=== PATIENT | male | born 1965 | race Two or more races ===

== ENCOUNTER 2018-10-19 10:11 | Emergency (ER) | payer BC ==
[2018-10-19] MEDS ORDERED: ASPIRIN 81 MG PO STA (10:30)
[2018-10-19] MEDS ORDERED: ATORVASTATIN 80 MG TAB PO STA (10:30)
[2018-10-19 10:43] LABS: Basophils # (A) 0.1 k/uL (0-0.2); Basophils % (A) 1 %; Eosinophils # (A) 0.3 k/uL (0-0.7); Eosinophils % (A) 2 %; HCT 51.7 % (39.0-53.0); HGB 17.6 gm/dL (13.0-17.5); Lymphocytes # (A) 2.9 k/uL (1.0-4.8); Lymphocytes % (A) 21 %; MCH 30.6 pg (25.0-35.0); MCV 89.8 fL (80.0-100.0); Mean Platelet Volume 7.3; Monocytes # (A) 0.4 k/uL (0-1.0); Monocytes % (A) 3 %; Neutrophils # (A) 9.7 k/uL (1.3-7.7); Neutrophils % (A) 72 %; Platelet Count 267 k/uL (150-450); RBC 5.75 m/uL (4.30-5.90); WBC 13.4 k/uL (3.8-10.6)
[2018-10-19 10:52] VITALS: TEMP 97.9
--- NOTE | 2018-10-19 11:00 | XR ---
EXAMINATION TYPE: XR chest 2V DATE OF EXAM: 10/19/2018 COMPARISON: Prior chest 12/27/2013 HISTORY: Chest pain TECHNIQUE: Frontal and lateral views of the chest are obtained. FINDINGS: Probable calcified granuloma present in the left upper lobe is stable. There are overlying cardiac leads. Heart is stable. No evident airspace disease, pneumothorax, or pleural effusion. Prom inent lung lines suggest underlying COPD. Cardiomediastinal silhouette, pulmonary vascularity and hil a are unchanged. IMPRESSION: Stable exam. No acute abnormality.
[2018-10-19 11:03] LABS: ALT 30 U/L (21-72); AST 19 U/L (17-59); Albumin 4.6 g/dL (3.5-5.0); Alkaline Phosphatase 158 U/L (38-126); Amylase 54 U/L (30-110); Anion Gap 9 mmol/L; Blood Urea Nitrogen 9 mg/dL (9-20); Calcium 9.5 mg/dL (8.4-10.2); Carbon Dioxide 24 mmol/L (22-30); Chloride 108 mmol/L (98-107); Creatine Kinase 112 U/L (55-170); Glucose 268 mg/dL (74-99); Lipase 146 U/L (23-300); Magnesium 1.8 mg/dL (1.6-2.3); Potassium 4.8 mmol/L (3.5-5.1); Sodium 141 mmol/L (137-145); Total Bilirubin 0.6 mg/dL (0.2-1.3); Total Protein 7.6 g/dL (6.3-8.2)
[2018-10-19 11:35] LABS: Glucose,Whole Blood 202 mg/dL (75-99)
[2018-10-19 11:43] LABS: D-Dimer 0.47 mg/L FEU (<0.60); INR 0.9 (<1.2); Partial Thromboplastin Time 24.8 sec (22.0-30.0); Prothrombin Time 9.6 sec (9.0-12.0)
[2018-10-19 11:58] VITALS: BP 150/103; PULSE 77; RESP 19
--- NOTE | 2018-10-19 12:01 | ED ---
General Adult HPI - General Chief complaint: Recheck/Abnormal Lab/Rx Stated complaint: abn ekg-sent by Dr Muniz Time Seen by Provider: 10/19/18 10:24 Source: patient Mode of arrival: wheelchair Limitations: no limitations - History of Present Illness Initial comments: This a 53-year-old male with a history of type 2 diabetes who was at his office today working when he suddenly became very diaphoretic and nauseated. This lasted for. Time EKG was done which showed no overt evidence of ST changes. He has no known history of heart disease he is a smoker no other modifying factors time he had no chest pain or shortness of breath he reports. Now he states he feels totally normal. - Related Data Home Medications Medication Instructions Recorded Confirmed Aspirin EC [Ecotrin Low Dose] 81 mg PO HS 10/19/18 10/19/18 Allergies Allergy/AdvReac Type Severity Reaction Status Date / Time No Known Allergies Allergy Verified 10/19/18 10:35 Review of Systems ROS Statement: Those systems with pertinent positive or pertinent negative responses have been documented in the HPI. ROS Other: All systems not noted in ROS Statement are negative. Past Medical History Past Medical History: GERD/Reflux, Hyperlipidemia Additional Past Medical History / Comment(s): afib with ablation History of Any Multi-Drug Resistant Organisms: None Reported Past Surgical History: Cholecystectomy Additional Past Surgical History / Comment(s): cardiac ablation Past Psychological History: No Psychological Hx Reported Smoking Status: Current every day smoker Past Alcohol Use History: Occasional Past Drug Use History: None Reported General Exam - General Exam Comments Initial Comments: This is a well-developed well-nourished awake alert oriented 3 male Limitations: no limitations General appearance: alert, in no apparent distress Head exam: Present: atraumatic, normocephalic, normal inspection Eye exam: Present: normal appearance, PERRL, EOMI. Absent: scleral icterus, conjunctival injection, periorbital swelling ENT exam: Present: normal exam, mucous membranes moist Neck exam: Present: normal inspection. Absent: tenderness, meningismus, lymphadenopathy Respiratory exam: Present: normal lung sounds bilaterally. Absent: respiratory distress, wheezes, rales, rhonchi, stridor Cardiovascular Exam: Present: regular rate, normal rhythm, normal heart sounds. Absent: systolic murmur, diastolic murmur, rubs, gallop, clicks GI/Abdominal exam: Present: soft, normal bowel sounds. Absent: distended, tenderness, guarding, rebound, rigid Extremities exam: Present: normal inspection, full ROM, normal capillary refill. Absent: tenderness, pedal edema, joint swelling, calf tenderness Back exam: Present: normal inspection Neurological exam: Present: alert, oriented X3, CN II-XII intact Psychiatric exam: Present: normal affect, normal mood Skin exam: Present: warm, dry, intact, normal color. Absent: rash Course Vital Signs 10/19/18 10:20 Temperature 97.9 F Pulse Rate 81 Respiratory 16 Rate Blood Pressure 201/103 O2 Sat by Pulse 100 Oximetry EKG Findings - EKG Results: EKG: interpreted by GUY, sinus rhythm (Normal sinus rhythm of 70. Interval 176 QRS duration 76 QT since QTC 354/403 nonspecific inferior and anterior changes. These were compared with EKG done in the office today as well as one done previously office no acute changes.) Medical Decision Making - Medical Decision Making The patient remains asymptomatic we did discuss the blood pressure issues as well as glucose issues. Patient does not want stay in hospital and will be discharged the current presentation is consistent with a vasovagal episode and will be discharged to follow-up - Lab Data Result diagrams: 10/19/18 10:22 10/19/18 10:22 Lab Results 10/19/18 10/19/18 10/19/18 Range/Units 10:22 10:22 10:22 WBC 13.4 H (3.8-10.6) k/uL RBC 5.75 (4.30-5.90) m/uL Hgb 17.6 H (13.0-17.5) gm/dL Hct 51.7 (39.0-53.0) % MCV 89.8 (80.0-100.0) fL MCH 30.6 (25.0-35.0) pg MCHC 34.0 (31.0-37.0) g/dL RDW 15.0 (11.5-15.5) % Plt Count 267 (150-450) k/uL Neutrophils % 72 % Lymphocytes % 21 % Monocytes % 3 % Eosinophils % 2 % Basophils % 1 % Neutrophils # 9.7 H (1.3-7.7) k/uL Lymphocytes # 2.9 (1.0-4.8) k/uL Monocytes # 0.4 (0-1.0) k/uL Eosinophils # 0.3 (0-0.7) k/uL Basophils # 0.1 (0-0.2) k/uL PT 9.6 (9.0-12.0) sec INR 0.9 (<1.2) APTT 24.8 (22.0-30.0) sec D-Dimer 0.47 (<0.60) mg/L FEU Sodium 141 (137-145) mmol/L Potassium 4.8 (3.5-5.1) mmol/L Chloride 108 H (98-107) mmol/L Carbon Dioxide 24 (22-30) mmol/L Anion Gap 9 mmol/L BUN 9 (9-20) mg/dL Creatinine 0.79 (0.66-1.25) mg/dL Est GFR (CKD-EPI)AfAm >90 (>60 ml/min/1.73 sqM) Est GFR (CKD-EPI)NonAf >90 (>60 ml/min/1.73 sqM) Glucose 268 H (74-99) mg/dL POC Glucose (mg/dL) (75-99) mg/dL POC Glu Relocation Counselor ID Calcium 9.5 (8.4-10.2) mg/dL Magnesium 1.8 (1.6-2.3) mg/dL Total Bilirubin 0.6 (0.2-1.3) mg/dL AST 19 (17-59) U/L ALT 30 (21-72) U/L Alkaline Phosphatase 158 H (38-126) U/L Creatine Kinase 112 (55-170) U/L Troponin I (0.000-0.034) ng/mL NT-Pro-B Natriuret Pep pg/mL Total Protein 7.6 (6.3-8.2) g/dL Albumin 4.6 (3.5-5.0) g/dL Amylase 54 (30-110) U/L Lipase 146 (23-300) U/L 10/19/18 10/19/18 10/19/18 Range/Units 10:22 10:22 11:33 WBC (3.8-10.6) k/uL RBC (4.30-5.90) m/uL Hgb (13.0-17.5) gm/dL Hct (39.0-53.0) % MCV (80.0-100.0) fL MCH (25.0-35.0) pg MCHC (31.0-37.0) g/dL RDW (11.5-15.5) % Plt Count (150-450) k/uL Neutrophils % % Lymphocytes % % Monocytes % % Eosinophils % % Basophils % % Neutrophils # (1.3-7.7) k/uL Lymphocytes # (1.0-4.8) k/uL Monocytes # (0-1.0) k/uL Eosinophils # (0-0.7) k/uL Basophils # (0-0.2) k/uL PT (9.0-12.0) sec INR (<1.2) APTT (22.0-30.0) sec D-Dimer (<0.60) mg/L FEU Sodium (137-145) mmol/L Potassium (3.5-5.1) mmol/L Chloride (98-107) mmol/L Carbon Dioxide (22-30) mmol/L Anion Gap mmol/L BUN (9-20) mg/dL Creatinine (0.66-1.25) mg/dL Est GFR (CKD-EPI)AfAm (>60 ml/min/1.73 sqM) Est GFR (CKD-EPI)NonAf (>60 ml/min/1.73 sqM) Glucose (74-99) mg/dL POC Glucose (mg/dL) 202 H (75-99) mg/dL POC Glu Relocation Counselor ID Primo Hillary Calcium (8.4-10.2) mg/dL Magnesium (1.6-2.3) mg/dL Total Bilirubin (0.2-1.3) mg/dL AST (17-59) U/L ALT (21-72) U/L Alkaline Phosphatase (38-126) U/L Creatine Kinase (55-170) U/L Troponin I <0.012 (0.000-0.034) ng/mL NT-Pro-B Natriuret Pep 67 pg/mL Total Protein (6.3-8.2) g/dL Albumin (3.5-5.0) g/dL Amylase (30-110) U/L Lipase (23-300) U/L - Radiology Data Radiology results: report reviewed (I did the imaging and reports no acute findings the echo was reviewed by Dr. Gao), image reviewed Disposition Clinical Impression: Vasovagal episode, Hyperglycemia Disposition: HOME SELF-CARE Condition: Good Instructions (If sedation given, give patient instructions): Near Syncope (ED), Hypertension (ED), Nondiabetic Hyperglycemia (ED) Is patient prescribed a controlled substance at d/c from ED?: No Referrals: Bernardino Rajan DO [Primary Care Provider] - 1-2 days
[2018-10-19 19:25] LABS: Hemoglobin A1C 10.9 % (4.0-6.0)
--- NOTE | 2018-10-20 10:27 | ECHOF ---
Referral Reason:Vagal episode MEASUREMENTS -------- HEIGHT: 180.3 cm WEIGHT: 103.0 kg BP: RVIDd: 2.5 cm (< 3.3) IVSd: 1.9 cm (0.6 - 1.1) LVIDd: 3.6 cm (3.9 - 5.3) LVPWd: 1.9 cm (0.6 - 1.1) IVSs: 2.1 cm LVIDs: 2.2 cm LVPWs: 2.2 cm LAESV Index (A-L): 19.69 ml/m Ao Diam: 2.5 cm (2.0 - 3.7) AV Cusp: 2.0 cm (1.5 - 2.6) LA Diam: 3.9 cm (2.7 - 3.8) EPSS: 0.4 cm MV E Samuel: 0.77 m/s MV DecT: 179 ms MV A Samuel: 0.59 m/s MV E/A Ratio: 1.31 RAP: 5.00 mmHg RVSP: 11.23 mmHg MV EF SLOPE: 65.35 mm/s (70 - 150) MV EXCURSION: 1.67 cm (> 18.000) FINDINGS -------- Sinus rhythm. This was a technically adequate study. The cavity size is decreased. There is severe concentric left ventricular hypertrophy. Overall le ft ventricular systolic function is normal with, an EF between 65 - 70 %. The right ventricle is normal in size. The left atrial size is normal. The right atrial size is normal. Interatrial and interventricular septum intact. Aortic valve is trileaflet and is mildly thickened. Mild mitral regurgitation is present. The tricuspid valve appears structurally normal. Mild tricuspid regurgitation present. There is n o evidence of pulmonary hypertension. There is no pulmonic regurgitation present. The aortic root size is normal. Normal inferior vena cava with normal inspiratory collapse consistent with estimated right atrial pre ssure of 10 mmHg. There is no pericardial effusion. CONCLUSIONS -------- 1. Sinus rhythm. 2. This was a technically adequate study. 3. The cavity size is decreased. 4. There is severe concentric left ventricular hypertrophy. 5. Overall left ventricular systolic function is normal with, an EF between 65 - 70 %. 6. The right ventricle is normal in size. 7. The left atrial size is normal. 8. The right atrial size is normal. 9. Interatrial and interventricular septum intact. 10. Aortic valve is trileaflet and is mildly thickened. 11. Mild mitral regurgitation is present. 12. The tricuspid valve appears structurally normal. 13. Mild tricuspid regurgitation present. 14. There is no evidence of pulmonary hypertension. 15. There is no pulmonic regurgitation present. 16. The aortic root size is normal. 17. Normal inferior vena cava with normal inspiratory collapse consistent with estimated right atrial pressure of 10 mmHg. 18. There is no pericardial effusion. DIRECTOR OF MARKETING AND PROMOTIONS: Millie Lemon RDCS
--- NOTE | 2018-10-20 12:54 | P.CRDCN ---
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 Subsequently he felt sweaty. He did not have any symptoms of chest pain or chest discomfort, shortness of breath, heart racing or fluttering, or syncope. He checked his sugar at his office and that came in to be elevated around 200 where he received some insulin and presented to the emergency room. In the ER, when he presented, he was hypertensive with a systolic blood pressure around 190 mmHg. The patient is not aware of any prior history of high blood pressure nor high cholesterol. Also the diabetes is new diagnosis to him. No history of coronary artery disease or coronary revascularization. He does have significant history of smoking and he continues to smoke as well. I did review the EKG in the emergency room I that revealed sinus rhythm with Q waves in the septal leads. No ischemic or acute ST or T-wave abnormalities. The time the patient was seen in the ER, there was no cardiac enzymes back on the patient. The patient was insistent to go back to work. I did perform an echocardiogram at bedside and that revealed hyperdynamic left ventricle with an ejection fraction of about 70- 75% with almost left ventricular cavity obliteration and evidence of severe left ventricular hypertrophy with septal thickness about 2 cm. No significant valvular abnormalities seen on the echo at bedside. Past Medical History Past Medical History: GERD/Reflux, Hyperlipidemia Additional Past Medical History / Comment(s): afib with ablation History of Any Multi-Drug Resistant Organisms: None Reported Past Surgical History: Cholecystectomy Additional Past Surgical History / Comment(s): cardiac ablation Past Psychological History: No Psychological Hx Reported Smoking Status: Current every day smoker Past Alcohol Use History: Occasional Past Drug Use History: None Reported Medications and Allergies Home Medications Medication Instructions Recorded Confirmed Type Aspirin EC [Ecotrin Low Dose] 81 mg PO HS 06/03/19 06/03/19 History Allergies Allergy/AdvReac Type Severity Reaction Status Date / Time No Known Allergies Allergy Verified 10/19/18 10:35 Physical Exam - Constitutional General appearance: no acute distress - Respiratory Respiratory: bilateral: CTA - Cardiovascular Rhythm: regular Heart sounds: normal: S1, S2 Results 10/19/18 10:22 10/19/18 10:22 10/19/18 10:22 10/19/18 10:22 Assessment and Plan Assessment: Assessment #1 an episode of nausea and sweating which has resolved #2 uncontrolled hypertension #3 recent diagnosis of diabetes #4 history of smoking Plan #1 I did advise the patient to stay to rule out acute coronary event by serial cardiac enzymes. #2 the EKG did not show any ischemic or acute changes. He continues to be chest pain-free #3 the echo revealed severe LVH with hyperdynamic left ventricle #4 I advised to obtain a stress test as an outpatient Thank you for allowing us participate in the care of the patient.
== END 2018-10-19 12:05 | disposition home or self-care (01) ==
LOC: EC 10:11
DX: E11.65 Type 2 diabetes mellitus with hyperglycemia (principal); R55 Syncope and collapse; I48.91 Unspecified atrial fibrillation; F17.200 Nicotine dependence, unspecified, uncomplicated; Z79.82 Long term (current) use of aspirin
CPT/HCPCS: 36415; 71046; 80053; 82150; 82550; 83036; 83690; 83735; 83880; 84484; 85025; 85379; 85610; 85730; 93306; 99285

== ENCOUNTER 2019-12-20 11:51 | Observation (INO) | payer BC ==
[~2019-12-20 11:51] MED LIST: Pre Op ABX Message 1 EACH MISC MISCELLANE ONE
[2019-12-20 12:52] LABS: Glucose,Whole Blood 233 mg/dL (75-99)
[2019-12-20] MEDS ORDERED: LACTATED RINGERS 1,000 ML IV ONE ×3 (12:52→15:06)
[2019-12-20] MEDS ORDERED: LIDOCAINE 1% (10MG/ML) FOR IV START INTRADERMA ONE (12:55)
[2019-12-20] MEDS ORDERED: ONDANSETRON 4 MG/2 ML VIAL ONE (12:57)
[2019-12-20] MEDS ORDERED: ONDANSETRON 4 MG/2 ML VIAL IVP ONE (13:02)
[2019-12-20] MEDS ORDERED: DEXAMETHASONE SOD PHOSPHATE 10 MG/ML 1 ML VIAL IV ONE (13:03)
[2019-12-20] MEDS ORDERED: fentaNYL (PF) 50 MCG/ML 2 ML AMP IV ONE ×2 (13:10→13:20)
[2019-12-20] MEDS ORDERED: fentaNYL (PF) 50 MCG/ML 2 ML AMP ONE (14:19)
[2019-12-20] MEDS ORDERED: MIDAZOLAM 2 MG/2 ML VIAL ONE (14:19)
[2019-12-20] MEDS ORDERED: LIDOCAINE 1% INJ 10MG/ML (20 ML MDV) ONE (14:19)
[2019-12-20] MEDS ORDERED: PROPOFOL 10 MG/ML 20 ML VIAL IV ONE (14:19)
--- NOTE | 2019-12-20 14:21 | P.GSHP ---
History of Present Illness H&P Date: 12/20/19 Chief Complaint: Right groin abscess 54-year-old male contacted me by phone this morning complaining of increased swelling right groin and perineum. Patient states symptoms began 3-4 days ago. Had another small area of swelling on the left perineal region. States he jarrell d the smaller left perineal region 2 days ago at home and purulent fluid was identified. Since then has had increasing swelling on the right. Area is larger in size. Describes feeling feverish with chills. Some headaches and body aches. Did not take his temperature. No respiratory symptoms. Patient diabetic. States his blood sugars have been fairly well controlled. No recent hemoglobin A1c. Hemoglobin A1c in the past was approximately 10. Takes Januvia and Bystolic daily. He is afebrile here in the hospital on admission. No history of MRSA. Past Medical History Past Medical History: GERD/Reflux, Hyperlipidemia Additional Past Medical History / Comment(s): afib with ablation History of Any Multi-Drug Resistant Organisms: None Reported Past Surgical History: Cholecystectomy Additional Past Surgical History / Comment(s): cardiac ablation Past Anesthesia/Blood Transfusion Reactions: No Reported Reaction Past Psychological History: No Psychological Hx Reported Smoking Status: Current some day smoker Past Alcohol Use History: Occasional Past Drug Use History: None Reported Medications and Allergies Home Medications Medication Instructions Recorded Confirmed Type Nebivolol HCl [Bystolic] 10 mg PO DAILY 12/20/19 12/20/19 History sitaGLIPtin [Januvia] 1 tab PO DAILY 12/20/19 12/20/19 History Allergies Allergy/AdvReac Type Severity Reaction Status Date / Time NARCOTICS AdvReac Nausea & Uncoded 12/20/19 12:40 Vomiting Surgical - Exam Vital Signs Temp Pulse Resp BP Pulse Ox 98.6 F 88 16 162/71 99 12/20/19 12:29 12/20/19 12:29 12/20/19 12:29 12/20/19 12:29 12/20/19 12:29 Physical exam: General: Well-developed, well-nourished HEENT: Normocephalic, sclerae nonicteric Abdomen: Nontender, nondistended Extremities: No edema Neuro: Alert and oriented Integument: Area of erythema extending from the right groin posteriorly to the perineum. Induration absent in the perirectal locations. Area of fluctuance most notable in the right groin crease measuring 2-3 cm. Extension of erythema approximately 10 x 5 cm. Another area of induration left side of perineum separate from the area on the right. Small scar from recent self I&D without drainage noted. No significant erythema on the left. Results - Labs Abnormal Lab Results - Last 24 Hours (Table) 12/20/19 Range/Units 12:50 POC Glucose (mg/dL) 233 H (75-99) mg/dL Assessment and Plan (1) Abscess of right groin Narrative/Plan: 54-year-old male with right groin abscess. We'll proceed with incision and drainage at this time. Anticipate packing wound with local wound care to begin postoperatively. We'll obtain cultures. Will consult infectious disease postoperatively. We'll cover for MRSA. Etiology may be on the basis of acute abscess formation in the setting of hidradenitis suppurativa. Current Visit: Yes Status: Acute Code(s): L02.214 - CUTANEOUS ABSCESS OF GROIN SNOMED Code(s): 89926651
[2019-12-20] MEDS ORDERED: ceFAZolin 1,000 MG VIAL IVPB ONE (14:40)
[2019-12-20] MEDS ORDERED: BUPIVACAINE (PF) 0.25% 30 ML VIAL SQ ONE (14:45)
[2019-12-20] MEDS ORDERED: ACETAMINOPHEN TAB 325 MG TAB PO PRN (15:06)
[2019-12-20] MEDS ORDERED: VANCOMYCIN IV PER PHARMACY 1 EACH MISC MISCELLANE PRN (15:06)
[2019-12-20] MEDS ORDERED: HYDROmorphone 1 MG/ML 1 ML SYRINGE IVP PRN (15:06)
[2019-12-20] MEDS ORDERED: HYDROcodone/APAP 5-325MG 1 EACH TAB PO PRN (15:06)
[2019-12-20] MEDS ORDERED: NALOXONE 0.4 MG/ML 1 ML VIAL IV PRN (15:06)
[2019-12-20] MEDS ORDERED: ONDANSETRON 4 MG/2 ML VIAL IVP PRN (15:06)
--- NOTE | 2019-12-20 15:15 | P.OP ---
Date of Procedure: 12/20/19 Procedure(s) Performed: PREOPERATIVE DIAGNOSIS: Right groin abscess POSTOPERATIVE DIAGNOSIS: Same PROCEDURE: Incision and drainage right groin abscess SURGEON: Autumn EBL: 10 mL ANESTHESIA: Gen. COMPLICATIONS: None OPERATIVE PROCEDURE: Patient was placed on the operative table in the lithotomy position after general anesthesia achieved. Scrotum was taped superiorly. Area prepped with Betadine. Patient had an obvious abscess in the right groin extending along the right groin crease to the perineal region. An incision was made in an oblique fashion inferior to the groin crease. Entrance into a moderate sized abscess cavity was performed. Before any manipulation air bubbles were noted to emanate from the wound itself. A foul malodorous purulent fluid was evacuated. Cultures were taken. Incision was lengthened slightly in a posterior direction given the size of the abscess. Abscess size measured 7 x 3.5 cm. No further tracking or purulence was seen. The patient had a small wound slightly inferior to this and on the left side of the perineum that he had himself previously lanced. This was bluntly dissected as the wound was still present. This wound measured 8 mm x 8 mm x 1 cm. This was irrigated along with the primary abscess site. The right groin abscess was packed with one-inch iodoform gauze. A small sliver of iodophor was also placed in the left perineal wound site. Sterile dressings were applied. DISPOSITION: Stable to recovery room
[2019-12-20 15:17] LABS: Glucose,Whole Blood 230 mg/dL (75-99)
[2019-12-20] MEDS ORDERED: INSULIN ASPART (NovoLOG) 100 UNIT/ML VIAL SQ ONE (16:16)
[2019-12-20] MEDS ORDERED: KETOROLAC 30 MG/ML 1 ML VIAL IVP ONE (16:24)
[2019-12-20] MEDS ORDERED: VANCOMYCIN 1,750 MG in SODIUM CHLORIDE 0.9% 500 ML 500 ML IVPB ONE (17:00)
[2019-12-20 17:43] LABS: African American GFR (CKD) >90 (>60 ml/min/1.73 sqM); Non-African American GFR(CKD) >90 (>60 ml/min/1.73 sqM)
[2019-12-20] MEDS: KETOROLAC 30 MG/ML 1 ML VIAL IVP SCH ×2 (17:53→22:08)
[2019-12-20] MEDS: AMPICILLIN-SULBACTAM 3 GM in SODIUM CHLORIDE 0.9% 100 ML IVPB SCH ×2 (17:53→23:46)
[2019-12-20] MEDS: HEPARIN SODIUM,PORCINE 5,000 UNIT/ML 1 ML VIAL SQ SCH ×2 (17:53→23:46)
[2019-12-21] MEDS: KETOROLAC 30 MG/ML 1 ML VIAL IVP SCH ×2 (02:59→09:25)
[2019-12-21] MEDS: VANCOMYCIN 1,750 MG in SODIUM CHLORIDE 0.9% 500 ML 500 ML IVPB SCH ×2 (03:09→09:25)
[2019-12-21 06:18] LABS: Glucose,Whole Blood 351 mg/dL (75-99)
[2019-12-21 06:45] LABS: Basophils % (A) 0 %; Eosinophils % (A) 0 %; HCT 40.6 % (39.0-53.0); HGB 13.2 gm/dL (13.0-17.5); Lymphocytes # (A) 1.3 k/uL (1.0-4.8); Lymphocytes % (A) 9 %; MCH 30.2 pg (25.0-35.0); MCHC 32.6 g/dL (31.0-37.0); MCV 92.8 fL (80.0-100.0); Mean Platelet Volume 7.6; Monocytes # (A) 0.6 k/uL (0-1.0); Monocytes % (A) 4 %; Neutrophils # (A) 12.7 k/uL (1.3-7.7); Neutrophils % (A) 86 %; Platelet Count 203 k/uL (150-450); RBC 4.38 m/uL (4.30-5.90); RDW 12.8 % (11.5-15.5); WBC 14.7 k/uL (3.8-10.6)
[2019-12-21 06:55] LABS: ALT 12 U/L (4-49); AST 12 U/L (17-59); African American GFR (CKD) >90 (>60 ml/min/1.73 sqM); Albumin 3.2 g/dL (3.5-5.0); Alkaline Phosphatase 75 U/L (38-126); Anion Gap 7 mmol/L; Blood Urea Nitrogen 23 mg/dL (9-20); Calcium 8.6 mg/dL (8.4-10.2); Carbon Dioxide 24 mmol/L (22-30); Chloride 106 mmol/L (98-107); Glucose 329 mg/dL (74-99); Non-African American GFR(CKD) >90 (>60 ml/min/1.73 sqM); Sodium 137 mmol/L (137-145); Total Bilirubin 0.5 mg/dL (0.2-1.3); Total Protein 5.6 g/dL (6.3-8.2)
[2019-12-21 06:56] LABS: Potassium 4.8 mmol/L (3.5-5.1)
[2019-12-21 07:36] VITALS: BP 160/71; PULSE 60; RESP 16; TEMP 97.5
[2019-12-21] MEDS: HEPARIN SODIUM,PORCINE 5,000 UNIT/ML 1 ML VIAL SQ SCH (07:44)
[2019-12-21] MEDS: AMPICILLIN-SULBACTAM 3 GM in SODIUM CHLORIDE 0.9% 100 ML IVPB SCH (07:44)
[2019-12-21] MEDS ORDERED: NEBIVOLOL 5 MG TAB PO SCH (09:00)
[2019-12-21] MEDS ORDERED: PANTOPRAZOLE 40 MG/10 ML VIAL IV SCH (09:00)
[2019-12-21] MEDS ORDERED: LINAGLIPTIN 5 MG TABLET PO SCH (09:00)
--- NOTE | 2019-12-21 10:32 | P.DS ---
Providers Date of admission: 12/21/19 04:46 Expected date of discharge: 12/21/19 Attending physician: Ag Leyva Consults: 12/20/19 15:06 Consult Physician Routine Consulting Provider: Vicenta Easley Consult Reason/Comments: Groin abscess Do you want consulting provider notified?: Yes Primary care physician: Stated None Hospital Course: 54-year-old male who contacted Dr. Leyva regarding increased swelling of his right groin and perineum. Patient was directly admitted to the hospital. Patient underwent incision and drainage of right groin abscess on 12/20/2019. Patient was evaluated by infectious disease during hospitalization. He was deemed stable for discharge home today per Dr. Leyva. Antibiotics prescribed at discharge per Dr. Easley. Please see EMR for further hospital course details. Discharge diagnosis 1. Right groin abscess, status post incision and drainage Nurse practitioner note has been reviewed by physician. Signing provider agrees with the documented findings, assessment, and plan of care. Patient Condition at Discharge: Stable Plan - Discharge Summary Discharge Rx Participant: Yes New Discharge Prescriptions: New Amoxic-Pot Clav 875-125Mg [Augmentin 875-125] 1 tab PO Q12HR #28 tab Sulfamethox-Tmp 800-160Mg [Bactrim DS 800-160 mg] 1 tab PO Q12HR #28 tab No Action sitaGLIPtin [Januvia] 1 tab PO DAILY Nebivolol HCl [Bystolic] 10 mg PO DAILY Discharge Medication List Nebivolol HCl [Bystolic] 10 mg PO DAILY 12/20/19 [History] sitaGLIPtin [Januvia] 1 tab PO DAILY 12/20/19 [History] Amoxic-Pot Clav 875-125Mg [Augmentin 875-125] 1 tab PO Q12HR #28 tab 12/21/19 [Rx] Sulfamethox-Tmp 800-160Mg [Bactrim DS 800-160 mg] 1 tab PO Q12HR #28 tab 12/21/19 [Rx] Follow up Appointment(s)/Referral(s): Vicenta Easley MD [STAFF PHYSICIAN] - 12/23/19 (Call office for wound cultures and further antibiotic recommendations.) Patient Instructions/Handouts: Incision and Drainage (DC) Discharge Disposition: HOME SELF-CARE
--- NOTE | 2019-12-21 10:35 | P.DS ---
Providers Date of admission: 12/21/19 04:46 Expected date of discharge: 12/21/19 Attending physician: Ag Leyva Consults: 12/20/19 15:06 Consult Physician Routine Consulting Provider: Vicenta Easley Consult Reason/Comments: Groin abscess Do you want consulting provider notified?: Yes Primary care physician: Stated None - Discharge Diagnosis(es) (1) Abscess of right groin Patient admitted yesterday for a right groin abscess. Went to surgery for incision and drainage. Gram stain showed both gram-positive and gram negatives bacteria. Doing well overnight. Blood sugars are somewhat elevated. He is afebrile. White blood cell count is 14. Patient is very anxious to go home. Patient is able to shower. His packing was removed and replaced with Aquacel silver rope. We'll discharge home at this time. Follow-up one week. Infectious disease will be following his cultures post discharge. Outpatient antibiotics prescribed. Current Visit: No Status: Acute Plan - Discharge Summary Discharge Rx Participant: Yes New Discharge Prescriptions: New Amoxic-Pot Clav 875-125Mg [Augmentin 875-125] 1 tab PO Q12HR #28 tab Sulfamethox-Tmp 800-160Mg [Bactrim DS 800-160 mg] 1 tab PO Q12HR #28 tab No Action sitaGLIPtin [Januvia] 1 tab PO DAILY Nebivolol HCl [Bystolic] 10 mg PO DAILY Discharge Medication List Nebivolol HCl [Bystolic] 10 mg PO DAILY 12/20/19 [History] sitaGLIPtin [Januvia] 1 tab PO DAILY 12/20/19 [History] Amoxic-Pot Clav 875-125Mg [Augmentin 875-125] 1 tab PO Q12HR #28 tab 12/21/19 [Rx] Sulfamethox-Tmp 800-160Mg [Bactrim DS 800-160 mg] 1 tab PO Q12HR #28 tab 12/21/19 [Rx] Follow up Appointment(s)/Referral(s): Vicenta Easley MD [STAFF PHYSICIAN] - 12/23/19 (Call office for wound cultures and further antibiotic recommendations.) Patient Instructions/Handouts: Incision and Drainage (DC)
[2019-12-21] MEDS ORDERED: VANCOMYCIN TROUGH DUE 1 EACH MISC MISCELLANE ONE (18:00)
== END 2019-12-21 09:54 | disposition home or self-care (01) ==
LOC: OR 11:51 → 1SOBS 16:22 → OR 12-21 05:17
PROVIDERS: ADMIT Surgery; ATTEND Surgery
DX: L02.214 Cutaneous abscess of groin (principal); E11.65 Type 2 diabetes mellitus with hyperglycemia; K21.9 Gastro-esophageal reflux disease without esophagitis; E78.5 Hyperlipidemia, unspecified; I48.91 Unspecified atrial fibrillation; F17.200 Nicotine dependence, unspecified, uncomplicated; Z87.2 Personal history of diseases of the skin and subcutaneous tissue; Z79.84 Long term (current) use of oral hypoglycemic drugs; Z79.899 Other long term (current) drug therapy; Z79.82 Long term (current) use of aspirin; Z98.890 Other specified postprocedural states; Z90.49 Acquired absence of other specified parts of digestive tract; Z88.5 Allergy status to narcotic agent
CPT/HCPCS: 10060; 80053; 82565; 85025; 87070; 87205; 87075; G0378; J2250; J3370 ×2; J1644 ×2; J1100; J2405; J0690; J2001; J3010; J1885 ×2; J0295 ×2; J2704; C9113

== ENCOUNTER → 2020-02-24 | Outpatient (CLI) | payer BC | END | disposition home or self-care (01) | LOC: LABWHC1 11:17 | PROVIDERS: ATTEND Family Medicine | DX: Z20.828 Contact with and (suspected) exposure to other viral communicable diseases (principal) | CPT/HCPCS: 87635; C9803 ==

== ENCOUNTER 2022-11-12 05:42 | Day surgery (SDC) | payer BC ==
[2022-11-11 11:52] VITALS: BMI 28.2
[2022-11-12] MEDS ORDERED: SODIUM CHLORIDE 0.9% 1,000 ML in EMPTY BAG 1 BAG IV ONE (06:01)
[2022-11-12 06:26] VITALS: RESP 18; TEMP 98.2
[2022-11-12 06:28] LABS: Glucose,Whole Blood 208 mg/dL (70-110)
[2022-11-12 06:29] LABS: Basophils # (A) 0.1 k/uL (0-0.2); Basophils % (A) 1 %; Eosinophils # (A) 0.3 k/uL (0-0.7); Eosinophils % (A) 3 %; HCT 45.9 % (39.0-53.0); HGB 15.7 gm/dL (13.0-17.5); Lymphocytes # (A) 3.6 k/uL (1.0-4.8); Lymphocytes % (A) 35 %; MCH 31.5 pg (25.0-35.0); MCHC 34.3 g/dL (31.0-37.0); MCV 91.8 fL (80.0-100.0); Mean Platelet Volume 7.4; Monocytes # (A) 0.6 k/uL (0-1.0); Monocytes % (A) 6 %; Neutrophils # (A) 5.7 k/uL (1.3-7.7); Neutrophils % (A) 55 %; Platelet Count 219 k/uL (150-450); RDW 12.7 % (11.5-15.5); WBC 10.3 k/uL (3.8-10.6)
[2022-11-12 06:42] LABS: African American GFR (CKD) >90 (>60 ml/min/1.73 sqM); Anion Gap 6 mmol/L; Blood Urea Nitrogen 18 mg/dL (9-20); Calcium 8.9 mg/dL (8.4-10.2); Carbon Dioxide 26 mmol/L (22-30); Chloride 105 mmol/L (98-107); Glucose 198 mg/dL (74-99); Non-African American GFR(CKD) >90 (>60 ml/min/1.73 sqM); Potassium 3.9 mmol/L (3.5-5.1); Sodium 137 mmol/L (137-145)
[2022-11-12] MEDS ORDERED: LIDOCAINE 1% INJ 10MG/ML (20 ML MDV) ONE (07:14)
[2022-11-12] MEDS ORDERED: VERAPAMIL 2.5 MG/ML 2 ML AMP ONE (07:14)
[2022-11-12] MEDS ORDERED: fentaNYL (PF) 50 MCG/ML 2 ML AMP ONE (07:26)
[2022-11-12] MEDS ORDERED: HEPARIN SODIUM 1,000 UN/ML (10ML VL) ONE (07:29)
[2022-11-12] MEDS ORDERED: MIDAZOLAM 2 MG/2 ML VIAL IV ONE (07:33)
[2022-11-12] MEDS ORDERED: LIDOCAINE 1% INJ 10MG/ML (20 ML MDV) SQ ONE (07:36)
[2022-11-12] MEDS ORDERED: IOPAMIDOL-370 100ML BTL INJ ONE ×2 (08:02)
--- NOTE | 2022-11-12 08:15 | P.OP ---
Date of Procedure: 11/12/22 Description of Procedure: Preoperative diagnosis: Disabling claudication Cara classification 3 Postop diagnosis: Same, bilateral superficial femoral artery stenosis greater than 90%. Poor runoff bilateral tibial arteries Procedure: Aortogram with bilateral lower extremity runoffs via left radial elías ry access under ultrasound guidance Surgeon: Vitaliy GENTILE Anesthesia: Moderate sedation times 32 minutes Estimated blood loss: 5 mL Complications: None Condition: Stable Findings: Aorta: Patent aorta with mild atherosclerotic disease throughout. No evidence of stenosis. Bilateral renal arteries with no evidence of stenotic disease. Iliacs: Bilateral common iliac, internal and external iliac arteries are patent with mild atherosclerotic disease throughout with no evidence of significant stenosis. Femorals: Bilateral common femoral and profundus femoris arteries are patent with mild atherosclerotic disease without any significant stenosis. Bilateral superficial femoral arteries are patent to the Azael's canal where there is significant stenosis greater than 90% bilaterally. Popliteal: Patent with mild atherosclerotic disease without any evidence of severe stenosis Tibials: Three-vessel takeoff noted bilaterally with areas of atherosclerotic disease and stenosis noted to be mild. There is decreased flow extending from the midportion of the lower leg to the ankle. Operative narrative: After written informed consent was obtained the patient all risks benefits competitions were described the patient is brought to the Phot[employer] Operator and laid in a supine position. The area of the left wrist was prepped and draped in the usual sterile fashion. Local anesthesia with moderate sedation was performed with continuous pulse ox monitoring and EKG monitoring. Utilizing ultrasound the left radial artery was visualized and shown to be patent without any significant plaque. Utilizing a multipurpose needle under ultrasound guidance the artery was accessed. Guidewire was placed followed by 5-Romansh sheath. 035 Glidewire was then placed into the descending thoracic aorta to the L1 vertebrae level followed by pigtail catheter. Angiogram was then obtained of the aorta. Catheter was then placed at the bifurcation and lower extremity runoffs were obtained. Once completed all guidewires, catheters and sheaths were removed and TR band was placed for hemostasis. Patient tolerated procedure well was sent to PACU for recovery Plan - Discharge Summary Discharge Rx Participant: No New Discharge Prescriptions: No Action Nebivolol HCl [Bystolic] 20 mg PO HS Discharge Medication List Nebivolol HCl [Bystolic] 20 mg PO HS 11/11/22 [History] Follow up Appointment(s)/Referral(s): Dhaval Burks DO [STAFF PHYSICIAN] - 1 Week Activity/Diet/Wound Care/Special Instructions: no lifting greater than 15 lbs with left arm x 1 week. Ok to shower. Discharge Disposition: HOME SELF-CARE
[2022-11-12 10:29] VITALS: BP 153/67; PULSE 67
--- NOTE | 2022-11-12 21:01 | IR ---
EXAMINATION TYPE: IR angio abdominal w runoff DATE OF EXAM: 11/12/2022 CLINICAL HISTORY: Peripheral arterial disease. TECHNIQUE: Fluoroscopy. COMPARISON: None. FINDINGS: Fluoroscopic guidance was provided during abdominal angiogram with runoff procedure perfor med by Dr. Burks. A total of 2.5 measurement of fluoroscopic time was utilized during the procedur e and 227 spot images was acquired. Total DAP = 39.4 Gy x cm2. Please refer to procedure note for fur ther details. IMPRESSION: As Above.
== END 2022-11-12 11:24 | disposition home or self-care (01) ==
LOC: CATHCVL 05:42
PROVIDERS: ATTEND Surgery
DX: I70.203 Unspecified atherosclerosis of native arteries of extremities, bilateral legs (principal); I48.91 Unspecified atrial fibrillation; Z79.899 Other long term (current) drug therapy
CPT/HCPCS: 36200; 75625; 75716; 76937; 80048; 85025; C1769 ×2; C1894; J2250; J2001; Q9967

== ENCOUNTER → 2023-03-28 | Day surgery (SDC) | payer BC ==
[2023-03-26 14:51] VITALS: BMI 28.3
[~2023-03-28] MED LIST changes: +CLOPIDOGREL 75 MG TAB ONE; +CLOPIDOGREL 75 MG TAB PO ONE; +HEPARIN SODIUM 1,000 UN/ML (10ML VL) IV ONE; +HEPARIN SODIUM 1,000 UN/ML (10ML VL) ONE; +INSULIN ASPART (NovoLOG) 100 UNIT/ML VIAL SQ ONE; +IOPAMIDOL-370 100ML BTL INJ ONE; +LIDOCAINE 1% INJ 10MG/ML (20 ML MDV) ONE; +LIDOCAINE 1% INJ 10MG/ML (20 ML MDV) SQ ONE; +MIDAZOLAM 2 MG/2 ML VIAL IVP ONE; -Pre Op ABX Message 1 EACH MISC MISCELLANE ONE; +SODIUM CHLORIDE 0.9% 1,000 ML in EMPTY BAG 1 BAG IV ONE; +fentaNYL (PF) 50 MCG/ML 2 ML AMP IVP ONE; +fentaNYL (PF) 50 MCG/ML 2 ML AMP ONE
[2023-03-28 06:31] LABS: Glucose,Whole Blood 251 mg/dL (70-110)
[2023-03-28 06:32] LABS: Basophils % (A) 0 %; Eosinophils # (A) 0.2 k/uL (0-0.7); Eosinophils % (A) 2 %; HCT 44.1 % (39.0-53.0); HGB 15.1 gm/dL (13.0-17.5); Lymphocytes # (A) 2.3 k/uL (1.0-4.8); Lymphocytes % (A) 26 %; MCH 31.4 pg (25.0-35.0); MCHC 34.2 g/dL (31.0-37.0); MCV 91.7 fL (80.0-100.0); Mean Platelet Volume 7.3; Monocytes # (A) 0.4 k/uL (0-1.0); Monocytes % (A) 4 %; Neutrophils # (A) 5.8 k/uL (1.3-7.7); Neutrophils % (A) 66 %; Platelet Count 191 k/uL (150-450); RBC 4.81 m/uL (4.30-5.90); RDW 12.7 % (11.5-15.5); WBC 8.7 k/uL (3.8-10.6)
[2023-03-28 06:44] LABS: African American GFR (CKD) >90 (>60 ml/min/1.73 sqM); Anion Gap 9 mmol/L; Blood Urea Nitrogen 11 mg/dL (9-20); Calcium 8.9 mg/dL (8.4-10.2); Carbon Dioxide 23 mmol/L (22-30); Chloride 106 mmol/L (98-107); Glucose 254 mg/dL (74-99); Non-African American GFR(CKD) >90 (>60 ml/min/1.73 sqM); Potassium 4.2 mmol/L (3.5-5.1); Sodium 138 mmol/L (137-145)
[2023-03-28 07:11] VITALS: RESP 16; TEMP 97.9
--- NOTE | 2023-03-28 08:35 | P.OP ---
Date of Procedure: 03/28/23 Description of Procedure: Pre-Op Dx: Left lower extremity claudication [place] classification 3, Left SFA stenosis >80% Post-Op Dx: Same Procedure: 1. Ultrasound guided right femoral artery access 2. Left lower extremity selective angiogram 3. Percutaneous directional atherectomy of left SFA with Hawk One device 4. Percutaenous balloon angioplasty with [id number] Impact Admiral balloon 5. 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 Operative narrative: After written and informed consent was obtained the patient all risks, benefits and complications were described patient is brought to the Calender Worker Helper and laid supine position. The area of the right groin was prepped and draped in usual sterile fashion. Timeout was performed in normal fashion. Utilizing ultrasound the right femoral artery was accessed and a 6 F sheath was placed. 035 Glidewire was then placed into the aorta followed by an RBI catheter and the left iliac was accessed in an up and over fashion. Selective angiogram was then obtained of the left lower extremity demonstrating 2 areas of focal stenosis measuring greater than 80% at the superficial femoral artery with three-vessel runoff to the ankle. Patient was given heparin and followed with ACTs. An 035 Glidewire advantage was then placed in an up and over fashion and the 6 F short sheath was removed and replaced with an up and over 6 F 55 cm sheath. Selective angiogram was again obtained demonstrating occlusion/stenosis of the left superficial femoral artery 2. Utilizing 035 Glidewire and quick cross catheter the lesion was crossed and selective angiogram distally was obtained demonstrating good intraluminal access. Once across a 5mm spider filter was placed and utilizing a 6M Hawk one atherectomy device directional atherectomy was performed with multiple passes. Once completed angiogram was obtained demonstrating improvement of the stenotic area. Balloon angioplasty was then performed with a 4 x 120 mm. Final angiogram demonstrated complete resolution of the stenosis with brisk flow and three- vessel runoff. All guidewires and catheters were then removed the sheath was removed and replaced with a short 6 F sheath and utilizing a Vascade closure device the access was closed. Pressure was placed for hemostasis. The patient tolerated the procedure well and had palpable PT pulses bilaterally and was sent to recovery. Plan - Discharge Summary Discharge Rx Participant: No New Discharge Prescriptions: No Action Ibuprofen [Motrin] 400 mg PO Q6HR PRN PRN Reason: Moderate To Severe Pain (4-10) Nebivolol HCl [Bystolic] 20 mg PO HS Clopidogrel [Plavix] 75 mg PO DAILY Aspirin 81 mg PO DAILY Discharge Medication List Nebivolol HCl [Bystolic] 20 mg PO HS 11/11/22 [History] Aspirin 81 mg PO DAILY 12/03/22 [History] Clopidogrel [Plavix] 75 mg PO DAILY 12/03/22 [History] Ibuprofen [Motrin] 400 mg PO Q6HR PRN 12/03/22 [History] Follow up Appointment(s)/Referral(s): Dhaval Burks DO [STAFF PHYSICIAN] - 4 Weeks Discharge Disposition: HOME SELF-CARE
--- NOTE | 2023-03-28 08:45 | IR ---
EXAMINATION TYPE: IR mech remov intraluminal mat HISTORY: Fluoroscopy time Impression: 1. Fluoroscopy support provided to the referring physician.
[2023-03-28 14:51] VITALS: BP 212/95; PULSE 62
== END | disposition home or self-care (01) ==
LOC: CATHCVL 05:51
PROVIDERS: ATTEND Surgery
DX: I73.9 Peripheral vascular disease, unspecified (principal); Z79.02 Long term (current) use of antithrombotics/antiplatelets; Z79.82 Long term (current) use of aspirin
CPT/HCPCS: 37225; 80048; 85025; C1894 ×2; C1769 ×4; C1887; C1714; C1884; C1760; C2623; J2250; J2001; J3010; J1644; Q9967

== ENCOUNTER → 2024-01-16 | Outpatient (CLI) | payer BC ==
--- NOTE | 2024-01-16 14:44 | CT ---
EXAMINATION TYPE: CT brain w con DATE OF EXAM: 01/16/2024 COMPARISON: None HISTORY: nystagmus x [address] DLP: combined 1889.1 mGycm Automated exposure control for dose reduction was used. CONTRAST: CT scan of the head is performed with IV Contrast, patient injected with 100 mL of Isovue 300. FINDINGS: There is no abnormal enhancing mass or midline shift identified. The ventricles and sulci are within normal limits in size. No pathological enhancement throughout the brain parenchyma. There are few scattered mucous retention cysts or polyps in the maxillary sinuses otherwise the paran acacia sinuses and mastoid air cells are well aerated. IMPRESSION: 1. No mass or pathological enhancement. 2. Mild chronic inflammatory changes in the maxillary sinuses as described above.
--- NOTE | 2024-01-16 14:54 | CT ---
EXAMINATION TYPE: CT neck chest w con DATE OF EXAM: 01/16/2024 2:32 PM COMPARISON: None HISTORY: nystagmus x [address] DLP: combined 1889.1 mGycm Automated exposure control for dose reduction was used. CONTRAST: CT scan of the neck is performed following with IV Contrast, patient injected with 100 mL of Isovue 3 00. Axial images are obtained, coronal and sagittal reformatted images are reviewed. FINDINGS: CT chest: There are scattered calcified granulomas but no suspicious lung mass or nodule. There is no airspace consolidation or abnormal interstitial density. There is no pleural effusion, pleural thickening or pneumothorax. The great vessels of the chest are normal and there is no mediastinal, hilar or axillary adenopathy. The osseous structures are intact. CT NECK: FINDINGS: There are no supraclavicular lymph nodes. There is no thyroid mass or gross enlargement. The larynx including the cricoid, arytenoid and thyroid cartilages as well as the vocal cords are nor mal and symmetric. The tongue base, epiglottis, aryepiglottic folds, piriform sinuses and vallecula are normal and symme tric. The parotid and submandibular glands are normal and symmetric without focal mass or gross enlargement . There is no pharyngeal or parapharyngeal soft tissue mass or enhancement The great vessels of the neck are normal. There are no enlarged lymph nodes. There is no soft tissue swelling, inflammation or abscess. IMPRESSION: No significant abnormality in the chest or neck..
== END | disposition home or self-care (01) ==
LOC: RADCTMAIN 13:45
PROVIDERS: ATTEND Family Medicine
DX: R55 Syncope and collapse (principal); R26.9 Unspecified abnormalities of gait and mobility; Z87.891 Personal history of nicotine dependence; J32.0 Chronic maxillary sinusitis
CPT/HCPCS: 70491; 70460; 71260; Q9967

== ENCOUNTER 2024-06-07 09:43 | Inpatient (IN) | payer BC ==
[2024-06-07 09:50] LABS: Glucose,Whole Blood 206 mg/dL (70-110)
[2024-06-07] MEDS ORDERED: LABETALOL SYRINGE 5 MG/ML (4 ML SYR) IVP STA (10:18)
--- NOTE | 2024-06-07 10:49 | XR ---
EXAMINATION TYPE: XR chest 2V DATE OF EXAM: 06/07/2024 COMPARISON: NONE CLINICAL INDICATION: Male, 58 years old with history of altered mental status; , TECHNIQUE: XR chest 2V views of the chest. FINDINGS: Calcified granuloma left upper lobe. Degenerative change of the spine. Lungs are clear. No pleural ef fusion or pneumothorax. No focal pneumonia. IMPRESSION: 1. No acute process. [facility], , 06/07/2024 10:47 AM
--- NOTE | 2024-06-07 10:50 | CT ---
EXAMINATION TYPE: CT brain wo con DATE OF EXAM: 06/07/2024 COMPARISON: Prior CT January 16, 2024 CLINICAL INDICATION: Male, 58 years old with history of Neuro deficit, acute, stroke suspected; PHH, STROKE LIKE SYMPTOMS TECHNIQUE: CT scan of the head is performed without contrast. CT DLP: 1122.1 mGycm Automated exposure control for dose reduction was used. FINDINGS: There is no acute intracranial hemorrhage or midline shift identified. There is mild diff use ventricular and sulcal prominence redemonstrated. There appear to be 2 old cortical infarcts axia l image 31 at level of bobo radiata which are new from prior CT. Nasal septum remains deviated to r ight of midline. The globes are intact and the visualized sinuses are clear. IMPRESSION: No acute intracranial hemorrhage or midline shift. [facility], , 06/07/2024 10:48 AM
[2024-06-07 10:53] LABS: Basophils # (A) 0.1 k/uL (0-0.2); Basophils % (A) 1 %; Eosinophils # (A) 0.1 k/uL (0-0.7); Eosinophils % (A) 1 %; HCT 50.3 % (39.0-53.0); HGB 17.3 gm/dL (13.0-17.5); Lymphocytes # (A) 1.8 k/uL (1.0-4.8); Lymphocytes % (A) 18 %; MCH 31.3 pg (25.0-35.0); MCHC 34.5 g/dL (31.0-37.0); MCV 90.7 fL (80.0-100.0); Mean Platelet Volume 7.2; Monocytes # (A) 0.4 k/uL (0-1.0); Monocytes % (A) 4 %; Neutrophils # (A) 7.5 k/uL (1.3-7.7); Neutrophils % (A) 75 %; Platelet Count 194 k/uL (150-450); RBC 5.55 m/uL (4.30-5.90); RDW 12.4 % (11.5-15.5)
[2024-06-07] MEDS: SODIUM CHLORIDE 0.9% 500 ML 500 ML IV STA (10:55)
--- NOTE | 2024-06-07 10:55 | CT ---
EXAMINATION TYPE: CT angio head neck DATE OF EXAM: 06/07/2024 COMPARISON: CT neck January 16, 2024. CLINICAL INDICATION: Male, 58 years old with history of Neuro deficit, acute, stroke suspected; PHH, STROKE LIKE SYMPTOMS TECHNIQUE: CTA scan of the head and neck is performed with IV Contrast, patient injected with 65 mL of Isovue 370, axial images are obtained, coronal and sagittal reformatted images are reviewed. 3D re constructed images are created on an independent workstation and reviewed. CT DLP: 509.8 mGycm Automated exposure control for dose reduction was used. NASCET criteria was used in interpretation of this exam? FINDINGS: Right Carotid System: The common carotid artery and external carotid artery are patent. The carotid bifurcation demonstrate s no evidence of hemodynamically significant stenosis. Mild to moderate peripheral mixed plaque in th e proximal internal carotid artery is seen. The remaining portions of the internal carotid artery dem onstrate normal size without significant narrowing. Mild to moderate peripheral calcified plaque dist ally is seen. Left Carotid System: The common carotid artery and external carotid artery are patent. The carotid bifurcation demonstrate s no evidence of hemodynamically significant stenosis. [id number] peripheral mixed plaque in th e proximal internal carotid artery is seen. The remaining portions of the internal carotid artery dem onstrate normal size without significant narrowing. Yalk-[id number]-ktywvzfy peripheral calcified plaque dist ally is seen. Vertebral arteries are patent without evidence hemodynamically significant stenosis. Codominant verte bral arteries are noted. There is a three-vessel aortic arch. The origins of the great vessels are patent. No evidence of hemo dynamically significant stenosis. Small caliber but patent anterior communicating artery. No large vessel occlusion or aneurysm at the level of the [place]. Patent left posterior communicating artery is noted. Other: Persistence posterior osyk-zj-iggokumr multilevel spurring and disc space narrowing the cervic al spine is redemonstrated. 1.5 cm subcutaneous cystic lesion possibly dermatologic in etiology. IMPRESSION: 1. No evidence of significant stenosis at the carotid bifurcations. No large vessel occlusion or an eurysm at the level of the [place] of [place]. [facility], , 06/07/2024 10:53 AM
[2024-06-07 11:01] LABS: Partial Thromboplastin Time 23.2 sec (22.0-30.0); Prothrombin Time 10.8 sec (10.0-12.5)
[2024-06-07] MEDS: ASPIRIN 81 MG PO STA (11:03)
[2024-06-07] MEDS: LABETALOL SYRINGE 5 MG/ML (4 ML SYR) IVP STA (11:06)
--- NOTE | 2024-06-07 11:08 | ED ---
General Adult HPI - General Chief complaint: Weakness Stated complaint: slurred speech,difficulty walking Time Seen by Provider: 06/07/24 09:45 Source: patient, RN notes reviewed, old records reviewed Mode of arrival: ambulatory Limitations: no limitations - History of Present Illness Initial comments: This is a 58-year-old male who presents to the emergency department stating that he woke up Friday morning he had slurred speech and he had upper and lower extremity weakness. Patient stated that right side seemed weaker than the left but both sides are definitely weak and he had a very hard time walking he thought he might fall over. Patient thought the symptoms might resolve and so he came to work today to work and his staff made him come to the emergency department. Patient has a past medical history significant for A-fib with an ablation patient is also a diabetic has high blood pressure and smokes cigarettes. Patient does not believe the symptoms are progressing but there continued to remain. Patient denies any recent fever chills or cough. Patient denies any visual disturbance or double vision. - Related Data Home Medications Medication Instructions Recorded Confirmed Nebivolol HCl [Bystolic] 20 mg PO HS 11/11/22 03/28/23 Aspirin 81 mg PO DAILY 12/03/22 03/26/23 Clopidogrel [Plavix] 75 mg PO DAILY 12/03/22 03/26/23 Ibuprofen [Motrin] 400 mg PO Q6HR PRN 12/03/22 03/28/23 Allergies Allergy/AdvReac Type Severity Reaction Status Date / Time red dye Allergy Anaphylaxis Verified 06/07/24 09:50 Review of Systems ROS Statement: Those systems with pertinent positive or pertinent negative responses have been documented in the HPI. ROS Other: All systems not noted in ROS Statement are negative. Past Medical History Past Medical History: Atrial Fibrillation, Diabetes Mellitus, GERD/Reflux, Hearing Disorder / Deafness, Hyperlipidemia, Hypertension, Osteoarthritis (OA), Sleep Apnea/CPAP/BIPAP, Vascular Disorder Additional Past Medical History / Comment(s): Slight hearing loss. Since weight loss Sleep Apnea resolved. Diet Controlled Diabetes. Claudication bilateral legs. Varicose veins History of Any Multi-Drug Resistant Organisms: None Reported Past Surgical History: Cardiac Ablation, Cholecystectomy Additional Past Surgical History / Comment(s): stenting rt femoral artery,PTBA rt femoral artery,Aortagram with run-offs, I&D right groin abscess. Past Anesthesia/Blood Transfusion Reactions: No Reported Reaction Past Psychological History: No Psychological Hx Reported Smoking Status: Current every day smoker Past Alcohol Use History: None Reported Past Drug Use History: Marijuana - Past Family History Brother(s) Family Medical History: Renal Disease Additional Family Medical History / Comment(s): Kidney transplants/polycystic kidney disorder. Father Family Medical History: Dialysis Additional Family Medical History / Comment(s): Infected shunt leading to sep sis. Mother Family Medical History: Cancer Sister(s) Family Medical History: Cancer General Exam - General Exam Comments Initial Comments: GENERAL: Patient is well-developed and well-nourished. Patient is nontoxic and well- hydrated and is in no acute distress. ENT: Neck is soft and supple. No significant lymphadenopathy is noted. Oropharynx is clear. Moist mucous membranes. Neck has full range of motion without eliciting any pain. EYES: The sclera were anicteric and conjunctiva were pink and moist. Extraocular movements were intact and pupils were equal round and reactive to light. Eyelids were unremarkable. PULMONARY: Unlabored respirations. Good breath sounds bilaterally. No audible rales rhonchi or wheezing was noted. CARDIOVASCULAR: There is a regular rate and rhythm without any murmurs gallops or rubs. ABDOMEN: Soft and nontender with normal bowel sounds. SKIN: Skin is clear with no lesions or rashes and otherwise unremarkable. NEUROLOGIC: Patient is alert and oriented x3. Patient has slurred speech. Patient has no drift. 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 Finger-nose testing is slightly off on the right but not on the left MUSCULOSKELETAL: Normal extremities with adequate strength and full range of motion. No lower extremity swelling or edema. No calf tenderness. LYMPHATICS: No significant lymphadenopathy is noted PSYCHIATRIC: Normal psychiatric evaluation. Limitations: no limitations Course Vital Signs 06/07/24 06/07/24 06/07/24 09:45 10:39 11:01 Temperature 98.5 F Pulse Rate 67 64 61 Respiratory 20 18 20 Rate Blood Pressure 206/112 191/78 174/77 O2 Sat by Pulse 98 100 99 Oximetry Medical Decision Making - Medical Decision Making EKG is interpreted by myself but EKG shows a sinus rhythm at 64 bpm MD 174 QRS 91 QT interval 384 QTc is 394. Patient's EKG shows no ST segment elevation or depression. Was pt. sent in by a medical professional or institution (ADDY Dutta, PRODUCTION CONSULTANT, urgent care, hospital, or longterm...) When possible be specific @ -No Did you speak to anyone other than the patient for history (EMS, parent, family, police, friend...)? What history was obtained from this source @ -No Did you review nursing and triage notes (agree or disagree)? Why? @ -I reviewed and agree with nursing and triage notes Were old charts reviewed (outside hosp., previous admission, EMS record, old EKG, old radiological studies, urgent care reports/EKG's, longterm records)? Report findings @ -No old charts were reviewed Differential Diagnosis? @ -Differential CVA Ischemic stroke, hemorrhagic stroke, brain tumor, atypical migraine, Wernicke's encephalopathy, seizure, multiple sclerosis, meningitis, encephalitis, hypoglycemia, Guillain-Sarah, electrolytes disturbance, myasthenia gravis.... This is not meant to be an all-inclusive list EKG interpreted by me (3pts min.). @ -As above X-rays interpreted by me (1pt min.). @ -Chest x-ray shows no acute abnormality CT interpreted by me (1pt min.). @ -CT of the brain shows no acute normality. CT of the angiogram of the head neck shows no acute abnormality U/S interpreted by me (1pt. min.). @ -None done What testing was considered but not performed or refused? (CT, X-rays, U/S, labs)? Why? @ -None What meds were considered but not given or refused? Why? @ -None Did you discuss the management of the patient with other professionals (professionals i.e. ADDY Dutta, PRODUCTION CONSULTANT, lab, RT, psych nurse, psychotherapist social worker, kiln stoker, teacher, bank secrecy act officer, binder caser)? Give summary @ -I spoke with Dr. Rajan he agreed to admit the patient. I spoke with Dr. Dariusz kelly he stated he will come down and see the patient. Was smoking cessation discussed for >3mins.? @ -No Was critical care preformed (if so, how long)? @ -No Were there social determinants of health that impacted care today? How? (Homelessness, low income, unemployed, alcoholism, drug addiction, transp ortation, low edu. Level, literacy, decrease access to med. care, custodial, rehab)? @ -No Was there de-escalation of care discussed even if they declined (Discuss DNR or withdrawal of care, Hospice)? DNR status @ -No What co-morbidities impacted this encounter? (DM, HTN, Smoking, COPD, CAD, Cancer, CVA, ARF, Chemo, Hep., AIDS, mental health diagnosis, sleep apnea, morbid obesity)? @ -None Was patient admitted / discharged? Hospital course, mention meds given and route, prescriptions, significant lab abnormalities, going to OR and other pertinent info. @ -Patient's symptoms remained throughout the ED course. CT of the head and neck and CT of the brain were normal. Lab work was within normal range except for a mildly elevated glucose Undiagnosed new problem with uncertain prognosis? @ -No Drug Therapy requiring intensive monitoring for toxicity (Heparin, Nitro, Insulin, Cardizem)? @ -No Were any procedures done? @ -No Diagnosis/symptom? @ -CVA Acute, or Chronic, or Acute on Chronic? @ -Acute Uncomplicated (without systemic symptoms) or Complicated (systemic symptoms)? @ -Complicated Side effects of treatment? @ -No Exacerbation, Progression, or Severe Exacerbation? @ -No Poses a threat to life or bodily function? How? (Chest pain, [place], [place], pneumonia, PE, COPD, DKA, ARF, appy, cholecystitis, CVA, Diverticulitis, Homicidal, Suicidal, threat to staff... and all critical care pts) @ -Yes this can lead to further stroke and significant disability - Lab Data Result diagrams: 06/07/24 10:18 06/07/24 10:18 Lab Results 06/07/24 06/07/24 06/07/24 Range/Units 09:48 10:18 10:18 WBC 10.0 (3.8-10.6) k/uL RBC 5.55 (4.30-5.90) m/uL Hgb 17.3 (13.0-17.5) gm/dL Hct 50.3 (39.0-53.0) % MCV 90.7 (80.0-100.0) fL MCH 31.3 (25.0-35.0) pg MCHC 34.5 (31.0-37.0) g/dL RDW 12.4 (11.5-15.5) % Plt Count 194 (150-450) k/uL MPV 7.2 Neutrophils % 75 % Lymphocytes % 18 % Monocytes % 4 % Eosinophils % 1 % Basophils % 1 % Neutrophils # 7.5 (1.3-7.7) k/uL Lymphocytes # 1.8 (1.0-4.8) k/uL Monocytes # 0.4 (0-1.0) k/uL Eosinophils # 0.1 (0-0.7) k/uL Basophils # 0.1 (0-0.2) k/uL PT 10.8 (10.0-12.5) sec INR 1.0 (<1.2) APTT 23.2 (22.0-30.0) sec Sodium (137-145) mmol/L Potassium (3.5-5.1) mmol/L Chloride (98-107) mmol/L Carbon Dioxide (22-30) mmol/L Anion Gap mmol/L BUN (9-20) mg/dL Creatinine (0.66-1.25) mg/dL Est GFR (CKD-EPI)AfAm (>60 ml/min/1.73 sqM) Est GFR (CKD-EPI)NonAf (>60 ml/min/1.73 sqM) Glucose (74-99) mg/dL POC Glucose (mg/dL) 206 H (70-110) mg/dL POC Glu Music Therapist ID [facility] Calcium (8.4-10.2) mg/dL Total Bilirubin (0.2-1.3) mg/dL AST (17-59) U/L ALT (4-49) U/L Alkaline Phosphatase (38-126) U/L Creatine Kinase (55-170) U/L Troponin I (0.000-0.034) ng/mL Total Protein (6.3-8.2) g/dL Albumin (3.5-5.0) g/dL 06/07/24 06/07/24 Range/Units 10:18 10:18 WBC (3.8-10.6) k/uL RBC (4.30-5.90) m/uL Hgb (13.0-17.5) gm/dL Hct (39.0-53.0) % MCV (80.0-100.0) fL MCH (25.0-35.0) pg MCHC (31.0-37.0) g/dL RDW (11.5-15.5) % Plt Count (150-450) k/uL MPV Neutrophils % % Lymphocytes % % Monocytes % % Eosinophils % % Basophils % % Neutrophils # (1.3-7.7) k/uL Lymphocytes # (1.0-4.8) k/uL Monocytes # (0-1.0) k/uL Eosinophils # (0-0.7) k/uL Basophils # (0-0.2) k/uL PT (10.0-12.5) sec INR (<1.2) APTT (22.0-30.0) sec Sodium 137 (137-145) mmol/L Potassium 5.0 (3.5-5.1) mmol/L Chloride 104 (98-107) mmol/L Carbon Dioxide 21 L (22-30) mmol/L Anion Gap 12 mmol/L BUN 19 (9-20) mg/dL Creatinine 0.90 (0.66-1.25) mg/dL Est GFR (CKD-EPI)AfAm >90 (>60 ml/min/1.73 sqM) Est GFR (CKD-EPI)NonAf >90 (>60 ml/min/1.73 sqM) Glucose 197 H (74-99) mg/dL POC Glucose (mg/dL) (70-110) mg/dL POC Glu Music Therapist ID Calcium 9.9 (8.4-10.2) mg/dL Total Bilirubin 0.9 (0.2-1.3) mg/dL AST 22 (17-59) U/L ALT 27 (4-49) U/L Alkaline Phosphatase 82 (38-126) U/L Creatine Kinase 131 (55-170) U/L Troponin I <0.012 (0.000-0.034) ng/mL Total Protein 7.3 (6.3-8.2) g/dL Albumin 4.7 (3.5-5.0) g/dL Disposition Clinical Impression: CVA (cerebral vascular accident) Disposition: ADMITTED IP TO THIS [facility] Referrals: Bernardino Rajan DO [Primary Care Provider] - 1-2 days Time of Disposition: 12:10
[2024-06-07 11:20] LABS: ALT 27 U/L (4-49); AST 22 U/L (17-59); African American GFR (CKD) >90 (>60 ml/min/1.73 sqM); Albumin 4.7 g/dL (3.5-5.0); Alkaline Phosphatase 82 U/L (38-126); Anion Gap 12 mmol/L; Blood Urea Nitrogen 19 mg/dL (9-20); Calcium 9.9 mg/dL (8.4-10.2); Carbon Dioxide 21 mmol/L (22-30); Chloride 104 mmol/L (98-107); Creatine Kinase 131 U/L (55-170); Glucose 197 mg/dL (74-99); Non-African American GFR(CKD) >90 (>60 ml/min/1.73 sqM); Sodium 137 mmol/L (137-145); Total Bilirubin 0.9 mg/dL (0.2-1.3); Total Protein 7.3 g/dL (6.3-8.2)
[2024-06-07] MEDS: ASPIRIN 325 MG TAB PO STA (13:10)
--- NOTE | 2024-06-07 13:13 | P.CNNES ---
History of Present Illness Consult date: 06/07/24 Requesting physician: Derek Agustin Reason for Consult: CVA History of Present Illness: Patient is a 58-year-old right-handed male, with history of hypertension, diabetes, hyperlipidemia, prior history of A-fib, tobacco use, PVD, came to the hospital this morning at 9:43 AM for strokelike symptoms. Patient states that his symptoms started 2 days prior to arrival, on 06/05/2024, when he woke up at 6:30 AM and tried to walk, was walking funny. He lives by himself with his dog. He tried to call his dog and felt some slurred speech. He tried to go downstairs and had hang to the handrail, as he was leaning to the right side, as the left side, as the left side was relatively stronger than the right. Both sides felt weak, but the right side was more. He stayed home, thinking the symptoms will go away. His symptoms were worse in the morning but better in the evening. Same thing happened yesterday on Friday when his symptoms were relatively worse in the morning, but better as the day went on. Today, on Friday, he showed up at his clinic and the staff noticed that he was slurring therefore he was brought to the hospital. This morning he could not use his right hand to brush his teeth, instead he was moving his head [id number] to brush his teeth. He was having more difficulty with dressing himself, as while putting his pants on, he would have to hang on otherwise he would fall. He does not believe that he is worse today as compared to the other 2 days. He denied any numbness, tingling, any visual disturbance. Vital signs on arrival blood pressure 206/112, which came down to 191/78, pulse rate 67 temperature 98.5. Patient at home takes aspirin 325 mg, Plavix 75 mg, Bystolic, and Jardiance. He takes Plavix very faithfully, although may have missed couple doses last week of aspirin. Patient had a CT head, which revealed no acute intracranial process. The radiol ogist noted to old cortical infarcts at the level of bobo radiator which are new from prior CT. On my review, the left side appears subacute whereas the right side is chronic. There is also area of hypodensity in the paramedian, left pontine region which was not present in the previous CAT scan. Chest x-ray showed no acute process. EKG showed sinus rhythm. CBC, PT PTT, CMP are normal with elevated glucose 206. Troponin negative. CK normal 131. Patient denies any history of strokes or TIA in the past. In 2013 he was diagnosed with atrial fibrillation. He was initially on Coumadin, then switched to Eliquis. In 2015 he underwent cardiac ablation in about 6 months after, he stopped taking Eliquis. He has diabetes for last 8 to 10 years, but started medications about 2 years ago. He has hypertension, hyperlipidemia. He has PAD, status post stent about 2 years ago. He has smoked 1 pack/day for 40 years, continues to smoke. Review of Systems All pertinent positive and negative use as mentioned HPI, otherwise unremarkable. He has tinnitus and hearing is not good. This is chronic. Past Medical History Past Medical History: Atrial Fibrillation, Diabetes Mellitus, GERD/Reflux, Hearing Disorder / Deafness, Hyperlipidemia, Hypertension, Osteoarthritis (OA), Sleep Apnea/CPAP/BIPAP, Vascular Disorder Additional Past Medical History / Comment(s): Slight hearing loss. Since weight loss Sleep Apnea resolved. Diet Controlled Diabetes. Claudication bilateral legs. Varicose veins History of Any Multi-Drug Resistant Organisms: None Reported Past Surgical History: Cardiac Ablation, Cholecystectomy Additional Past Surgical History / Comment(s): stenting rt femoral artery,PTBA rt femoral artery,Aortagram with run-offs, I&D right groin abscess. Past Anesthesia/Blood Transfusion Reactions: No Reported Reaction Past Psychological History: No Psychological Hx Reported Smoking Status: Current every day smoker Past Alcohol Use History: None Reported Past Drug Use History: Marijuana - Past Family History Brother(s) Family Medical History: Renal Disease Additional Family Medical History / Comment(s): Kidney transplants/polycystic kidney disorder. Father Family Medical History: Dialysis Additional Family Medical History / Comment(s): Infected shunt leading to sepsis. Mother Family Medical History: Cancer Sister(s) Family Medical History: Cancer Medications and Allergies Home Medications Medication Instructions Recorded Confirmed Type Nebivolol HCl [Bystolic] 20 mg PO HS 11/11/22 06/07/24 History Clopidogrel [Plavix] 75 mg PO HS 12/03/22 06/07/24 History Aspirin EC [Ecotrin] 325 mg PO HS 06/07/24 06/07/24 History Empagliflozin [Jardiance] 10 mg PO DAILY 06/07/24 06/07/24 History Ibuprofen [Advil] 400 mg PO Q6H PRN 06/07/24 06/07/24 History Allergies Allergy/AdvReac Type Severity Reaction Status Date / Time red dye Allergy Anaphylaxis Verified 06/07/24 12:24 Physical Examination - Vital Signs Vital Signs: Vital Signs Temp Pulse Resp BP Pulse Ox 06/07/24 10:39 64 18 191/78 100 06/07/24 09:45 98.5 F 67 20 206/112 98 Intake and Output 06/06/24 06/07/24 06/07/24 22:59 06:59 14:59 Other: Weight 99.79 kg Patient is a middle aged male, very pleasant, in no acute distress. Patient is somewhat quite indifferent to his symptomatology asking after examination "can I go home now?". Patient is alert awake oriented to time place and person. Speech is mild to moderately dysarthric and language functions are normal. Patient can name and repeat very well. Attention, concentration and fund of knowledge is adequate. On cranial nerve examination, pupils are equal, round and reacting to light, visual rodriguez are full on confrontation, with no neglect on double simultaneous stimulation. Extraocular muscles are intact with no nystagmus. Patient has very subtle right facial asymmetry. His tongue protrudes to the midline. Palatal elevation and sensation normal, hearing and shoulder shrug normal, facial sensation normal. On muscle strength testing, there is very minimal right sided pronation, but no drift. Strength is grossly normal in the arms and legs distally and proximally except right hip flexion which is about 5-. Deep tendon reflexes are asymmetric (right/left) biceps 2/1, brachioradialis 2/ 1, knee 1+/trace, plantar is up on the right side and down on the left side. Sensory to touch is equal with no neglect on double simultaneous stimulation. Cerebellar function showed very mild right-sided ataxia for [id number] testing. No ataxia for [id number] testing on either side. Tone and bulk of muscles normal. Gait deferred.. On general examination, there is no carotid bruit or murmur, S1-S2 audible. Chest is clear on consultation. Abdomen is soft nontender. No organomegaly, bowel sounds present. Peripheral pulses are present. Mild peripheral edema. Results - Laboratory Findings CBC and BMP: 06/07/24 10:18 06/07/24 10:18 Abnormal Lab Findings: Abnormal Labs 06/07/24 09:48 POC Glucose (mg/dL) 206 H Assessment and Plan Assessment: * Acute ischemic stroke, manifesting with mild to moderate dysarthria, and mild right-sided weakness. * Hypertension * Diabetes, poorly controlled * Hyperlipidemia * Peripheral vascular disease * Tobacco use * History of atrial fibrillation, status post ablation 2015 Plan: MRI of the brain without contrast, evaluate for acute CVA 2-D echo with bubble study to rule out PFO CTA head and neck showed: No evidence of significant stenosis at the carotid bifurcation. No large vessel occlusion or aneurysm at the level of [place]. Fasting a.m. lipid panel Hemoglobin A1c Permissive hypertension for next 24-48 hours Patient was taking aspirin 325 mg and Plavix 75 mg daily. He states that he has been compliant with at least Plavix daily. We will switch to Brilinta 90 mg twice daily, decrease aspirin to 81 mg. Neuro checks every 2 hours Telemetry monitoring rule out any arrhythmia Recommend 30-day event monitoring rule out recurrent paroxysmal atrial fibrillation. PT, OT, speech therapy DVT prophylaxis: Heparin 5000 units subcu every 8 hours Recommend complete tobacco cessation Neurology will continue to follow. Discussed with multiple family members as well. Thank you for the consult. Time with Patient: Greater than 30
[2024-06-07] MEDS: TICAGRELOR 90 MG TAB PO STA (13:45)
--- NOTE | 2024-06-07 15:56 | MR ---
INDICATION: Patient age:Male; 58 years old; Reason for study: CVA; PHH. COMPARISON: CT brain 06/07/2024, 01/16/2024, CTA head and neck 06/07/2024. TECHNIQUE: Multi planar, multi sequence imaging was performed through the brain without administratio n of intravenous contrast. FINDINGS: The chan-white junctions, ventricular system, basal cisterns appear unremarkable. Mild diffuse cerebr al volume loss. Diffusion-weighted imaging shows restricted diffusion within the left aspect of the p ons extending to midline (series 303, image 88). There is corresponding increased FLAIR signal. There are 2 remote and bilateral frontal lobe lacunar infarcts at the level of the bobo radiata with gli osis. Intracranial arterial flow voids are maintained. Midline structures show no abnormality. Patchy areas of high T2/FLAIR signal intensity are seen within the periventricular and subcortical white ma tter. The susceptibility weighted images do not reveal any evidence for micro-hemorrhage. The bone marrow signal is within normal limits. The globes are unremarkable. Mild mucosal thickening of the bilateral anterior ethmoid sinuses. Posterior midline neck T1 hypointense lesion measuring up to 1.9 cm likely representing a sebaceous cyst corresponding with CT. IMPRESSION: 1. Acute/subacute ischemia within the left brennon. 2. Small remote lacunar infarcts within the bilateral frontal lobes. 3. Nonspecific white matter changes, likely related to small vessel ischemic disease. [facility], , 06/07/2024 3:53 PM
[2024-06-07 17:02] LABS: Glucose,Whole Blood 107 mg/dL (70-110)
[2024-06-07] MEDS: TICAGRELOR 90 MG TAB PO SCH (19:51)
[2024-06-07 20:01] LABS: Glucose,Whole Blood 128 mg/dL (70-110)
[2024-06-08 06:05] LABS: Glucose,Whole Blood 102 mg/dL (70-110)
[2024-06-08] MEDS: ASPIRIN 81 MG PO SCH (08:16)
[2024-06-08] MEDS ORDERED: ASPIRIN 325 MG TAB PO SCH (09:00)
[2024-06-08 09:19] LABS: LDL Cholesterol,Calculated 156.4 mg/dL (0.0-131.0)
[2024-06-08 12:01] LABS: Glucose,Whole Blood 128 mg/dL (70-110)
[2024-06-08] MEDS ORDERED: DEXTROSE 50% SYRINGE 50 ML IVP PRN ×2 (12:26)
[2024-06-08] MEDS: INSULIN ASPART (NovoLOG) 100 UNIT/ML VIAL SQ SCH (13:55)
[2024-06-08] MEDS: PANTOPRAZOLE 40 MG/10 ML VIAL IVP SCH (13:56)
--- NOTE | 2024-06-08 15:15 | P.HPIM ---
History of Present Illness H&P Date: 06/08/24 Chief Complaint: CVA This is a 58-year-old gentleman with past medical history significant for atrial fibrillation status post ablation, CAD, hypertension, PAD status post stent, ongoing nicotine dependence 1 pack/day x 40 years, diabetes mellitus, presented to the ER yesterday with complaints of right-sided weakness, gait dysfunction, slurred speech which began on Friday morning upon awakening. Denies progression of symptoms-appeared to improve at nighttime.Friday morning symptoms appeared worse -similar to Friday morning , improving at night again .reports he felt the symptoms would resolve, did not seek care, proceeded to work on Friday and staff referred him to the ER. On admission hypertensive blood pressure 206/112, pulse 67, afebrile. unremarkable hematology, coagulation panels. Electrolytes within normal limits, bicarb 21, BUN 19, creatinine 0.9. Glucose 197 on admission, hemoglobin A1c 7.6. Troponin negative x 1. EKG reported sinus rhythm. triglycerides 245, cholesterol 237, LDL [address] reported no acute intracranial hemorrhage or midline shift. CTA head and neck reported no evidence of significant stenosis at the carotid bifurcation. No large vessel occlusion or aneurysm at the level of [place]. Chest x-ray reported no acute process. Brain MRI reported acute/subacute ischemia within the left brennon. Small remote lacunar infarcts within the bilateral frontal lobes. Review of Systems ROS Statement: Those systems with pertinent positive or pertinent negative responses have been documented in the HPI. ROS Other: All systems not noted in ROS Statement are negative. Past Medical History Past Medical History: Atrial Fibrillation, Diabetes Mellitus, GERD/Reflux, Hearing Disorder / Deafness, Hyperlipidemia, Hypertension, Osteoarthritis (OA), Sleep Apnea/CPAP/BIPAP, Vascular Disorder Additional Past Medical History / Comment(s): Slight hearing loss. Since weight loss Sleep Apnea resolved. Diet Controlled Diabetes. Claudication bilateral legs . Varicose veins History of Any Multi-Drug Resistant Organisms: None Reported Past Surgical History: Cardiac Ablation, Cholecystectomy Additional Past Surgical History / Comment(s): stenting rt femoral artery,PTBA rt femoral artery,Aortagram with run-offs, I&D right groin abscess. Past Anesthesia/Blood Transfusion Reactions: No Reported Reaction Smoking Status: Current every day smoker - Past Family History Brother(s) Family Medical History: Renal Disease Additional Family Medical History / Comment(s): Kidney transplants/polycystic kidney disorder. Father Family Medical History: Dialysis Additional Family Medical History / Comment(s): Infected shunt leading to sepsis. Mother Family Medical History: Cancer Sister(s) Family Medical History: Cancer Additional Family Medical History / Comment(s): kidney disease Medications and Allergies Home Medications Medication Instructions Recorded Confirmed Type Nebivolol HCl [Bystolic] 20 mg PO HS 11/11/22 06/07/24 History Clopidogrel [Plavix] 75 mg PO HS 12/03/22 06/07/24 History Aspirin EC [Ecotrin] 325 mg PO HS 06/07/24 06/07/24 History Empagliflozin [Jardiance] 10 mg PO DAILY 06/07/24 06/07/24 History Ibuprofen [Advil] 400 mg PO Q6H PRN 06/07/24 06/07/24 History Allergies Allergy/AdvReac Type Severity Reaction Status Date / Time red dye Allergy Anaphylaxis Verified 06/07/24 12:24 Physical Exam Vitals: Vital Signs Temp Pulse Pulse Resp BP BP Pulse Ox 06/08/24 14:00 64 17 06/08/24 11:11 98.0 F 64 17 160/81 98 06/08/24 08:10 98.2 F 64 17 158/69 98 06/08/24 04:00 98.1 F 58 L 16 144/70 98 06/08/24 02:00 54 L 17 06/08/24 00:00 98.0 F 53 L 16 157/71 100 06/07/24 20:00 97.9 F 60 17 185/86 98 06/07/24 16:10 97.7 F 63 17 163/76 98 06/07/24 15:15 163/72 06/07/24 15:00 63 150/84 98 06/07/24 14:45 62 150/84 97 06/07/24 14:30 62 152/27 96 Intake and Output 06/07/24 06/08/24 06/08/24 22:59 06:59 14:59 Intake Total 510 210 Balance 510 210 Intake: IV 10 10 Invasive Line 1 10 10 Oral 500 200 Other: Voiding Method Toilet Toilet Toilet Urinal Urinal Urinal # Voids 2 Weight 99.79 kg 93.6 kg PHYSICAL EXAM: VITAL SIGNS: [Reviewed] GENERAL: Alert and oriented x 3, no acute distress, dysarthric HEENT: Conjunctivae normal. eyes normal. NECK: Supple, no JVD. No thyroid enlargement. No LNs CARDIOVASCULAR: S1, S2 regular.. No murmur RESPIRATION: Unlabored, equal air entry, clear to auscultation. ABDOMEN: Soft, nontender . No guarding. no masses palpable. No ascites, No hepatosplenomegaly.+BS. LEGS: Trace edema, no calf tenderness. NERVOUS SYSTEM: Dysarthric, minimal right-sided pronation -strength and sensation grossly intact. Skin: no lesions, no rash noted Results CBC & Chem 7: 06/07/24 10:18 06/07/24 10:18 Labs: Abnormal Lab Results - Last 24 Hours (Table) 06/07/24 06/07/24 06/07/24 Range/Units 10:18 10:18 19:59 POC Glucose (mg/dL) 128 H (70-110) mg/dL Hemoglobin A1c 7.6 H (<=6.0) % Triglycerides 245.00 H (0.00-149.00) mg/dL Cholesterol 237.00 H (0.00-200.00) mg/dL LDL Cholesterol, Calc 156.4 H (0.0-131.0) mg/dL VLDL Cholesterol, Calc 49.00 H (5.00-40.00) mg/dL HDL Cholesterol 31.60 L (40.00-60.00) mg/dL 06/08/24 Range/Units 11:59 POC Glucose (mg/dL) 128 H (70-110) mg/dL Hemoglobin A1c (<=6.0) % Triglycerides (0.00-149.00) mg/dL Cholesterol (0.00-200.00) mg/dL LDL Cholesterol, Calc (0.0-131.0) mg/dL VLDL Cholesterol, Calc (5.00-40.00) mg/dL HDL Cholesterol (40.00-60.00) mg/dL Thrombosis Risk Factor Assmnt - Choose All That Apply Any of the Below Risk Factors Present?: Yes Each Factor Represents 1 point: Age 41-60 years Other Risk Factors: No Each Risk Factor Represents 5 Points: Stroke (< 1 month) Thrombosis Risk Factor Assessment Total Risk Factor Score: 6 Thrombosis Risk Factor Assessment Level: High Risk Assessment and Plan Assessment: Acute CVA with mild right-sided weakness, dysarthria.Brain MRI reported acute/subacute ischemia within the left brennon. Small remote lacunar infarcts within the bilateral frontal lobes. Diabetes mellitus, hemoglobin A1c 7.6 Hypertension Ongoing nicotine dependence Peripheral vascular disease Chronic atrial fibrillation, status post ablation in 2016 Plan: Continue on current medication regimen ,monitoring and symptomatic treatment. Neurology workup in progress. smoking cessation reinforced with nicotine patch ordered. Tight blood sugar control. PT/OT/ST consulted. Telemetry monitoring. Maintained on Brilinta and aspirin. Prognosis guarded given multiple complex medical issues. The impression and plan of care has been dictated as directed. : I performed a history and examination of this patient, discussed the same with the dictator. I agree with the dictator's note ,documented as a scribe. Any additional findings or plans will be noted.
[2024-06-08] MEDS: INSULIN DETEMIR (LEVEMIR) 100 UNIT/ML SYR SQ SCH ×2 (15:18→15:33)
[2024-06-08] MEDS: NICOTINE 21MG/24HR PATCH TRANSDERM SCH (15:33)
[2024-06-08 16:36] LABS: Glucose,Whole Blood 134 mg/dL (70-110)
--- NOTE | 2024-06-08 17:26 | CA ---
Transthoracic Echo Report Name: Orion Cervantes Age: 58 Gender: M : 1965 Exam Date: 06/08/2024 11:18 Exam Location: [place] [facility] Ht (in): 74 Wt (lb): 220 Ordering Physician: Anne Marie Martínez MD Attending/Referring Phys: Sterilization Technician Maricel Jacobo RDCS Procedure CPT: Indications: CVA, r/o PFO Cardiac Hx: Technical Quality: Good Contrast 1: Agitated Saline Total Dose (mL): 9 Contrast 2: Total Dose (mL): MEASUREMENTS (Male / Female) Normal Values 2D ECHO LV Diastolic Diameter PLAX 5.6 cm 4.2 - 5.9 / 3.9 - 5.3 cm LV Systolic Diameter PLAX 3.2 cm IVS Diastolic Thickness 1.1 cm 0.6 - 1.0 / 0.6 - 0.9 cm LVPW Diastolic Thickness 1.1 cm 0.6 - 1.0 / 0.6 - 0.9 cm LV Relative Wall Thickness 0.4 LVOT Diameter 2.1 cm Aortic Root Diameter 3.5 cm LV Diastolic Volume MOD BP 109.4 cm??? 67 - 155 / 56 - 104 cm??? LV Systolic Volume MOD BP 48.7 cm??? 22 - 58 / 19 - 49 cm??? LV Ejection Fraction MOD BP 55.5 % >= 55 % LV Cardiac Index MOD BP 1690.7 cm???/min???m??? LV Diastolic Volume MOD 4C 111.7 cm??? LV Systolic Volume MOD 4C 46.3 cm??? LV Ejection Fraction MOD 4C 58.6 % LV Cardiac Index MOD 4C 1822.7 cm???/min???m??? LV Diastolic Length 4C 8.6 cm LV Systolic Length 4C 6.8 cm LV Diastolic Volume MOD 2C 105.5 cm??? LV Systolic Volume MOD 2C 48.0 cm??? LV Ejection Fraction MOD 2C 54.5 % LV Cardiac Index MOD 2C 1601.0 cm???/min???m??? LV Diastolic Length 2C 8.5 cm LV Systolic Length 2C 7.2 cm LA Volume 62.8 cm??? 18 - 58 / 22 - 52 cm??? LA Volume Index 27.3 cm???/m??? 16 - 28 cm???/m??? Ascending Aorta Diameter 3.7 cm DOPPLER AV Peak Velocity 123.4 cm/s AV Peak Gradient 6.1 mmHg AV Mean Velocity 95.6 cm/s AV Mean Gradient 3.8 mmHg AV Velocity Time Integral 30.2 cm LVOT Peak Velocity 94.7 cm/s LVOT Peak Gradient 3.6 mmHg LVOT Velocity Time Integral 20.3 cm LVOT Stroke Volume 71.1 cm??? LVOT Stroke Volume Index 31.4 ml/m??? LVOT Cardiac Index 1979.8 cm???/min???m??? AV Area Cont Eq vti 2.4 cm??? AV Area Cont Eq pk 2.7 cm??? MV Area PHT 2.5 cm??? Mitral E Point Velocity 68.0 cm/s Mitral A Point Velocity 55.4 cm/s Mitral E to A Ratio 1.2 MV Deceleration Time 308.8 ms PV Peak Velocity 91.3 cm/s PV Peak Gradient 3.3 mmHg FINDINGS Left Ventricle Left ventricular ejection fraction is estimated at 60 %. Left ventricular cavity size normal. Left ventricular wall thickness normal. No obvious regional wall motion abnormalities. Normal left ventricular systolic function. Right Ventricle Normal right ventricular size and function. Unable to estimate the right ventricular systolic pressure. Right Atrium Normal right atrial size. Left Atrium Mildly increased left atrial volume. Mildly increased left atrial area. Mitral Valve Structurally normal mitral valve. No mitral stenosis, regurgitation or prolapse. Aortic Valve Trileaflet aortic valve. No aortic valve stenosis or regurgitation. Tricuspid Valve Structurally normal tricuspid valve. No tricuspid stenosis, regurgitation or prolapse. Pulmonic Valve Structurally normal pulmonic valve. No pulmonic stenosis. No pulmonic regurgitation. Pericardium No pericardial effusion. Aorta Normal size aortic root and proximal ascending aorta. CONCLUSIONS Left ventricular ejection fraction 60% Mildly dilated left atrium No mitral regurgitation No tricuspid regurgitation No pericardial effusion Somewhat limited bubble study with poor windows however no PFO noted Previewed by: Dr. Rafi Vasquez DO (Electronically Signed) Final Date: 08 June 2024 17:25
[2024-06-08 19:59] VITALS: RESP 16
[2024-06-08 20:48] LABS: Glucose,Whole Blood 138 mg/dL (70-110)
[2024-06-08] MEDS: ATORVASTATIN 80 MG TAB PO SCH (20:56)
[2024-06-09 04:42] VITALS: TEMP 97.9
[2024-06-09 06:10] LABS: Glucose,Whole Blood 118 mg/dL (70-110)
[2024-06-09] MEDS: PANTOPRAZOLE 40 MG TABLET PO SCH (06:46)
[2024-06-09 07:26] LABS: African American GFR (CKD) >90 (>60 ml/min/1.73 sqM); Anion Gap 9 mmol/L; Blood Urea Nitrogen 20 mg/dL (9-20); Calcium 10.1 mg/dL (8.4-10.2); Carbon Dioxide 26 mmol/L (22-30); Chloride 102 mmol/L (98-107); Glucose 120 mg/dL (74-99); Magnesium 1.9 mg/dL (1.6-2.3); Non-African American GFR(CKD) >90 (>60 ml/min/1.73 sqM); Potassium 4.3 mmol/L (3.5-5.1); Sodium 137 mmol/L (137-145)
--- NOTE | 2024-06-09 09:43 | P.PN ---
Subjective Progress Note Date: 06/08/24 Patient was seen for follow-up. Patient states that his voice is much improved. He walked down the kwon and speech has improved. He still notices dexterity of the right hand, cannot write well. No new neurological symptoms. Patient wants to go home. Objective - Vital Signs Vital signs: Vital Signs Temp 98.0 F 06/08/24 11:11 Pulse 64 06/08/24 11:11 Resp 17 06/08/24 11:11 BP 160/81 06/08/24 11:11 Pulse Ox 98 06/08/24 11:11 FiO2 Intake & Output 06/07/24 06/08/24 06/08/24 18:59 06:59 18:59 Intake Total 720 Balance 720 Weight 99.79 kg 93.6 kg Intake: IV 20 Invasive Line 1 20 Oral 700 Other: Voiding Method Toilet Toilet Urinal Urinal # Voids 2 - Exam Mental status, speech and language functions are normal. Patient does have mild dysarthria but improved than yesterday. Cranial nerves reveals flattening of the right nasolabial fold otherwise all normal. Muscle strength revealed mild right pronation but no drift. Muscle strength is normal. Sensory to touch is equal. Mild ataxia of the right upper extremity. Gait fairly normal. - Labs CBC & Chem 7: 06/07/24 10:18 06/09/24 06:54 Labs: Abnormal Lab Results - Last 24 Hours (Table) 06/07/24 06/07/24 06/07/24 Range/Units 10:18 10:18 19:59 POC Glucose (mg/dL) 128 H (70-110) mg/dL Hemoglobin A1c 7.6 H (<=6.0) % Triglycerides 245.00 H (0.00-149.00) mg/dL Cholesterol 237.00 H (0.00-200.00) mg/dL LDL Cholesterol, Calc 156.4 H (0.0-131.0) mg/dL VLDL Cholesterol, Calc 49.00 H (5.00-40.00) mg/dL HDL Cholesterol 31.60 L (40.00-60.00) mg/dL 06/08/24 Range/Units 11:59 POC Glucose (mg/dL) 128 H (70-110) mg/dL Hemoglobin A1c (<=6.0) % Triglycerides (0.00-149.00) mg/dL Cholesterol (0.00-200.00) mg/dL LDL Cholesterol, Calc (0.0-131.0) mg/dL VLDL Cholesterol, Calc (5.00-40.00) mg/dL HDL Cholesterol (40.00-60.00) mg/dL Assessment and Plan Assessment: * Acute left pontine ischemic stroke, manifesting with mild to moderate dysarthria, and mild right-sided weakness. * Hypertension * Diabetes, poorly controlled * Hyperlipidemia * Peripheral vascular disease * Tobacco use * History of atrial fibrillation, status post ablation 2015 Plan: * MRI of the brain without contrast, revealed acute/subacute ischemia within the left brennon. Small remote lacunar infarcts within the bilateral frontal lobes. Nonspecific white matter changes, likely related to small vessel ischemic disease. On my review, the acute ischemia involves the left ventral paramedian brennon. The remote ischemia as described above involves bilateral frontal subcortical white matter. * Await 2-D echo with bubble study to rule out PFO * CTA head and neck showed: No evidence of significant stenosis at the carotid bifurcation. No large vessel occlusion or aneurysm at the level of [place]. Recommend aggressive control of vascular risk factors. Fasting a.m. lipid panel revealed cholesterol 237, LDL 156, HDL 31, triglycerides 245. We will start Lipitor 80 mg daily. Patient was not on any statins at home. Hemoglobin A1c 7.6. Recommend optimize control of diabetes to target A1c <7.0. Permissive hypertension for next 24 hours. Then may start gradually controlling the blood pressure. Patient was taking aspirin 325 mg and Plavix 75 mg daily. He states that he has been compliant with at least Plavix daily. We will switch to Brilinta 90 mg twice daily, decrease aspirin to 81 mg. Neuro checks every 4 hours Telemetry monitoring rule out any arrhythmia Recommend 30-day event monitoring rule out recurrent paroxysmal atrial fibrillation. PT, OT, speech therapy. PT recommending continued evaluation. DVT prophylaxis: Heparin 5000 units subcu every 8 hours Recommend complete tobacco cessation
[2024-06-09] MEDS ORDERED: NEBIVOLOL HCL 20 MG PO SCH (11:30)
[2024-06-09 11:50] VITALS: BP 180/77; PULSE 73
[2024-06-09 11:56] LABS: Glucose,Whole Blood 166 mg/dL (70-110)
--- NOTE | 2024-06-09 15:42 | P.DS ---
Providers Date of admission: 06/07/24 12:10 Expected date of discharge: 06/09/24 Attending physician: Bernardino Rajan Consults: 06/07/24 12:11 Consult Physician Routine Consulting Provider: Anne Marie Martínez Consult Reason/Comments: CVA Do you want consulting provider notified?: Yes Primary care physician: Bernardino Rajan [facility] Course: Final Diagnosis: Acute CVA with mild right-sided weakness, dysarthria.Brain MRI reported acute/subacute ischemia within the left brennon. Small remote lacunar infarcts within the bilateral frontal lobes. Diabetes mellitus, hemoglobin A1c 7.6, diabetic education with further diabetes management recommendations outpatient Hypertension Ongoing nicotine dependence Peripheral vascular disease Chronic atrial fibrillation, status post ablation in 2016 Hospital course:This is a 58-year-old gentleman with past medical history significant for atrial fibrillation status post ablation, CAD, hypertension, PAD status post stent, ongoing nicotine dependence 1 pack/day x 40 years, diabetes mellitus, presented to the ER yesterday with complaints of right-sided weakness, gait dysfunction, slurred speech which began on Friday morning upon awakening. Denies progression of symptoms-appeared to improve at nighttime.Friday morning symptoms appeared worse -similar to Friday morning , improving at night again .reports he felt the symptoms would resolve, did not seek care, proceeded to work on Friday morning and staff referred him to the ER. On admission hypertensive blood pressure 206/112, pulse 67, afebrile. unremarkable hematology, coagulation panels. Electrolytes within normal limits, bicarb 21, BUN 19, creatinine 0.9. Glucose 197 on admission, hemoglobin A1c 7.6. Troponin negative x 1. EKG reported sinus rhythm. triglycerides 245, cholesterol 237, LDL [address] reported no acute intracranial hemorrhage or midline shift. CTA head and neck reported no evidence of significant stenosis at the carotid bifurcation. No large vessel occlusion or aneurysm at the level of [place]. Chest x-ray reported no acute process. Brain MRI reported acute/subacute ischemia within the left brennon. Small remote lacunar infarcts within the bilateral frontal lobes. 2D echo reported normal LV function, limited bubble study with poor windows however no PFO noted. Neurowork-up completed and patient has been cleared by neurology for discharge. No driving until cleared by neurologist outpatient. Speech and strength improving. Denies chest pain, palpitations or shortness of breath. Smoking cessation reinforced. Tight blood sugar control. Case management to arrange for outpatient PT/OT/ST. event monitor at discharge. Continue on Brilinta and aspirin 81 mg. Patient will be discharged home today in a stable condition with guarded prognosis. The impression and plan of care has been dictated as directed. : I performed a history and examination of this patient, discussed the same with the dictator. I agree with the dictator's note ,documented as a scribe. Any additional findings or plans will be noted. Patient Condition at Discharge: Stable Plan - Discharge Summary Discharge Rx Participant: No New Discharge Prescriptions: New Ticagrelor [Brilinta] 90 mg PO BID #60 tab Aspirin EC [Ecotrin Low Dose] 81 mg PO DAILY #30 tab Nicotine 21Mg/24Hr Patch [Habitrol] 1 patch TRANSDERM DAILY patch Pantoprazole [Protonix] 40 mg PO AC-BRKFST #30 tab Atorvastatin [Lipitor] 80 mg PO HS #30 tab Nebivolol HCl [Bystolic] 20 mg PO DAILY Continue Empagliflozin [Jardiance] 10 mg PO DAILY Discontinued Aspirin EC [Ecotrin] 325 mg PO HS Clopidogrel [Plavix] 75 mg PO HS Ibuprofen [Advil] 400 mg PO Q6H PRN PRN Reason: Pain Discharge Medication List Empagliflozin [Jardiance] 10 mg PO DAILY 06/07/24 [History] Aspirin EC [Ecotrin Low Dose] 81 mg PO DAILY #30 tab 06/09/24 [Rx] Atorvastatin [Lipitor] 80 mg PO HS #30 tab 06/09/24 [Rx] Nebivolol HCl [Bystolic] 20 mg PO DAILY 06/09/24 [Rx] Nicotine 21Mg/24Hr Patch [Habitrol] 1 patch TRANSDERM DAILY patch 06/09/24 [Rx] Pantoprazole [Protonix] 40 mg PO AC-BRKFST #30 tab 06/09/24 [Rx] Ticagrelor [Brilinta] 90 mg PO BID #60 tab 06/09/24 [Rx] Follow up Appointment(s)/Referral(s): Bernardino Rajan DO [Primary Care Provider] - 3 Days Donavan Marin DO [STAFF PHYSICIAN] - 1 Week Patient Instructions/Handouts: Ischemic Stroke (DC) Activity/Diet/Wound Care/Special Instructions: No driving until cleared by neurologist outpatient as per neurology's recommendations Event monitor No Smoking Outpatient PT OT ST Further diabetic education outpatient in clinic, hemoglobin A1c 7.6. Discharge Disposition: HOME SELF-CARE
--- NOTE | 2024-06-11 10:07 | P.PN ---
Subjective Progress Note Date: 06/09/24 Patient was seen for follow-up. Patient states that his voice is much improved. He walked down the kwon and speech has improved. He still notices dexterity of the right hand, cannot write well. No new neurological symptoms. Patient wants to go home. Patient believes his speech is about 90% improved, still slightly slurred. His walking has improved, but not quite back to normal. Objective - Vital Signs Vital signs: Vital Signs Temp 97.9 F 06/09/24 04:00 Pulse 69 06/09/24 08:00 Resp 16 06/09/24 08:00 BP 194/62 06/09/24 08:00 Pulse Ox 99 06/09/24 08:00 FiO2 Intake & Output 06/08/24 06/09/24 06/09/24 18:59 06:59 18:59 Intake Total 10 240 Balance 10 240 Weight 92.7 kg Intake: IV 10 Invasive Line 1 10 Oral 240 Other: Voiding Method Toilet Toilet Urinal Urinal # Voids 2 1 - Exam Mental status, language functions are normal. Patient does have mild dysarthria but improved than yesterday. Cranial nerves reveals flattening of the right nasolabial fold otherwise all normal. 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 Muscle strength revealed mild right upward pronation but no drift. Muscle strength is normal. Patient's finger tapping is quite slow on the right as c ompared to left. Fine motor also decreased on the right. Sensory to touch is equal. Ataxia of the right upper extremity has almost resolved. Gait fairly normal. - Labs CBC & Chem 7: 06/07/24 10:18 06/09/24 06:54 Labs: Abnormal Lab Results - Last 24 Hours (Table) 06/08/24 06/08/24 06/08/24 Range/Units 11:59 16:35 20:46 Glucose (74-99) mg/dL POC Glucose (mg/dL) 128 H 134 H 138 H (70-110) mg/dL 06/09/24 06/09/24 Range/Units 06:08 06:54 Glucose 120 H (74-99) mg/dL POC Glucose (mg/dL) 118 H (70-110) mg/dL Assessment and Plan Assessment: * Acute left pontine ischemic stroke, manifesting with mild to moderate dysarthria, and mild right-sided weakness. * Hypertension * Diabetes, poorly controlled * Hyperlipidemia * Peripheral vascular disease * Tobacco use * History of atrial fibrillation, status post ablation 2015 Plan: * MRI of the brain without contrast, revealed acute/subacute ischemia within the left brennon. Small remote lacunar infarcts within the bilateral frontal lobes. Nonspecific white matter changes, likely related to small vessel ischemic disease. On my review, the acute ischemia involves the left ventral paramedian brennon. The remote ischemia as described above involves bilateral frontal subcortical white matter. * 2-D echo revealed normal LVEF 60%. Left ventricular wall thickness is normal. No obvious regional wall motion abnormalities. Normal right atrial size. Mildly increased left atrial volume. Somewhat limited bubble study with poor windows, however no PFO noted. * CTA head and neck showed: No evidence of significant stenosis at the carotid bifurcation. No large vessel occlusion or aneurysm at the level of [place]. Recommend aggressive control of vascular risk factors. Fasting a.m. lipid panel revealed cholesterol 237, LDL 156, HDL 31, triglycerides 245. We will start Lipitor 80 mg daily. Patient was not on any statins at home. Hemoglobin A1c 7.6. Recommend optimize control of diabetes to target A1c <7.0. May resume his home medications. Gradually improve the blood pressure. Avoid hypotension. Patient was taking aspirin 325 mg and Plavix 75 mg daily. He states that he has been compliant with at least Plavix daily. We will switch to Brilinta 90 mg twice daily, decrease aspirin to 81 mg. Patient tolerating medications well. Recommend 30-day event monitoring rule out recurrent paroxysmal atrial fibrillation. Patient will have it scheduled through cardiology office outpatient. 2D echo was not the best study. May consider ENEDELIA as an outpatient. PT, OT, speech therapy. PT recommending continued evaluation. Recommend complete tobacco cessation Patient to follow-up with Neurology outpatient in 1 to 2 weeks. Hold off on returning back to work and driving, until cleared by neurology outpatient. Discussed with primary team.
== END 2024-06-09 13:50 | disposition home or self-care (01) | DRG 65 ==
LOC: EC 09:43 → 3SCARD 12:10
PROVIDERS: ADMIT Family Medicine; ATTEND Family Medicine
DX: I63.29 Cerebral infarction due to unspecified occlusion or stenosis of other precerebral arteries (principal); G81.91 Hemiplegia, unspecified affecting right dominant side; E11.51 Type 2 diabetes mellitus with diabetic peripheral angiopathy without gangrene; I10 Essential (primary) hypertension; Z95.820 Peripheral vascular angioplasty status with implants and grafts; I48.20 Chronic atrial fibrillation, unspecified; R47.1 Dysarthria and anarthria; E11.65 Type 2 diabetes mellitus with hyperglycemia; E78.5 Hyperlipidemia, unspecified; F17.210 Nicotine dependence, cigarettes, uncomplicated; H91.90 Unspecified hearing loss, unspecified ear; I25.10 Atherosclerotic heart disease of native coronary artery without angina pectoris; Z79.02 Long term (current) use of antithrombotics/antiplatelets; Z79.82 Long term (current) use of aspirin; Z79.84 Long term (current) use of oral hypoglycemic drugs; Z71.6 Tobacco abuse counseling
CPT/HCPCS: 36415; 70450; 70496; 70498; 70551; 71046; 80048; 80053; 80061; 82550; 83036; 83735; 84484; 85025; 85610; 85730; 93005; 93270; 93306; 96360; 99285